=== PATIENT | female | born 1995 | race Hispanic/Latino ===

== ENCOUNTER 2018-03-15 10:47 | Emergency (ER) | payer MEDICARE, OTHER ==
[~2018-03-15] VITALS: Ht 160 cm; Wt 62.1 kg
[2018-03-15] MEDS ORDERED: HYDROCODONE/APAP 7.5MG-325MG 1 EA TAB PO PRN (11:00)
--- NOTE | 2018-03-15 12:11 | Diagnostic Imaging Report ---
RIGHT HAND X-RAY - 3 VIEWS HISTORY: \S\r/o fx \[id number] \[id number] COMPARISON: None available. FINDINGS: Bones: No acute displaced fracture. Osseous alignment is within normal limits. Joints: The joint spaces are well-maintained. Soft tissues: The soft tissues appear unremarkable. IMPRESSION: No acute radiographic abnormality. Signed by: Dr. Haleigh Jefferson M.D. on 03/15/2018 12:08 PM
== END 2018-03-15 12:58 | disposition home or self-care (01) ==
LOC: ER 10:47
DX: S60.221A Contusion of right hand, initial encounter (principal); W22.09XA Striking against other stationary object, initial encounter; X79.XXXA Intentional self-harm by blunt object, initial encounter; Y92.008 Other place in unspecified non-institutional (private) residence as the place of occurrence of the external cause
CPT/HCPCS: 99283

== ENCOUNTER 2020-02-11 08:00 | Emergency (ER) | payer BC, MEDICARE ==
[~2020-02-11] VITALS: Ht 160 cm; Wt 62.1 kg
--- OUTSIDE RECORDS SUMMARY | 2020-02-11 08:03 | XMS REPORT ---
Author Author [facility] t Organization [facility] Address 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 Allergies, Adverse Reactions, Alerts Allergy Name Allergy Type Status Severity Reaction(s) Onset Date Inacti ve Date Treating Clinician Comments Source No Known Allergies DA Active U 2019-03-25 00:00:00 [facility] No Known Allergies DA Active U 2018-11-08 00:00:00 [facility] No Known Allergies DA Active U 2018-08-21 00:00:00 [facility] No Known Drug Allergies DA Active U 2010-10-01 00:00:00 [facility] No Known Contrast Allergies DA Active U 2001-10-28 00:00: 00 [facility] No Known Drug Allergies DA Active U 2001-10-28 00:00:00 [facility] No Known Food Allergies DA Active U 2001-10-28 00:00:00 [facility] No Known Other Allergies DA Active U 2001-10-28 00:00:00 [facility] Social History Social Habit Start Date Stop Date Quantity Comments Source Sex Assigned At [facility] Medications This patient has no known medications. Procedures This patient has no known procedures. Plan of Care Planned Activity Planned Date Details Comments Source Future Scheduled Test 2020-06-15 00:00:00 IMM Influenza Seas onal Jun to November (>/= 19 yrs) [code = IMM Influenza Seasonal Jun to November (>/= 19 yrs)] [facility] Scheduled Test 2017 00:00:00 Cervical Cancer Sc rn (3 Yrs) [code = Cervical Cancer Scrn (3 Yrs)] [facility] Encounters Start Date/Time End Date/Time Encounter Type Admission Type Att[facility] Care Department Encounter ID Source 2018-11-05 11:55:26 2018-11-05 11:55:26 Outpatient [facility] [id number] [facility] 2018-11-05 00:00:00 2018-11-05 00:00:00 Outpatient [facility] [id number] [facility] 2018-03-15 10:47:00 2018-03-15 12:58:00 Departed Emergency Room [address] [facility] [id number] [facility] Results Test Description Test Time Test Comments Results Result Comments Source Manual Diff 2019-04-18 08:56:46 Test Item Segs Man (test code = Segs Man) 80.0 % 36.0-70.0 H Band Man (test code = Band Man) 5.0 % 0.0-6.0 Lymph Man (test code = Lymph Man) 11.0 % 12.0-44.0 L Monocyte Man (test code = Monocyte Man) 4.0 % 0.0-11.0 Neut Man Abs (test code = Neut Man Abs) 21.0 x10 1.6-7.4 H Lymph Man Abs (test code = Lymph Man Abs) 2.7 x10 0.5-4.6 [place] Man Abs (test code = [place] Man Abs) 1.0 x10 0.0-1.2 RBC Morph (test code = RBC Morph) Normal Normal Hypochromia (test code = Hypochromia) None Seen None Seen Anisocyte (test code = Anisocyte) None None Microcyte (test code = Microcyte) None Seen None Seen Macrocyte (test code = Macrocyte) None Seen None Seen Poik (test code = Poik) None Seen None Seen Polychrom (test code = Polychrom) None Seen None Seen Acanthocyte (test code = Acanthocyte) None Seen None Seen Baso Stippling RBC (test code = Baso Stippling RBC) None Seen No ne Seen Plt Estimation (test code = Plt Estimation) Normal Normal IG [id number] 08:56:46* Test Item Value Reference Range Interpretation Comments IG (test code = IG) 1.3 % 0.0-5.0 IG Abs (test code = IG Abs) 0 x10 N Complete Blood Count with [id number] 06:33:27* Test Item Value Reference Range Interpretation Comments WBC (test code = WBC) 24.7 x10 4.4-10.5 H RBC (test code = RBC) 3.28 x10 3.75-5.20 L Hgb (test code = Hgb) 9.6 g/dL 12.2-14.8 L Hct (test code = Hct) 28.6 % 36.5-44.4 L MCV (test code = MCV) 87.20 fL 80.00-100.00 MCHC (test code = MCHC) 33.60 g/dL 32.00-37.50 RDW CV (test code = RDW CV) 13.7 % 11.5-14.5 MCH (test code = MCH) 29.3 pg 27.0-32.5 Platelets (test code = Platelets) 162.0 x10 140.0-440.0 MPV (test code = MPV) 11.9 fL N Slide Review (test code = Slide Review) Manual Auto A Result created by GL_SJM_SLIDE_REV_AUTO GL_SJM_XN_RFLX IPF (test code = IPF) 0 % N Complete Blood Count with [id number] 06:33:27* Test Item Value Reference Range Interpretation Comments WBC (test code = WBC) 24.7 x10 4.4-10.5 H RBC (test code = RBC) 3.28 x10 3.75-5.20 L Hgb (test code = Hgb) 9.6 g/dL 12.2-14.8 L Hct (test code = Hct) 28.6 % 36.5-44.4 L MCV (test code = MCV) 87.20 fL 80.00-100.00 MCHC (test code = MCHC) 33.60 g/dL 32.00-37.50 RDW CV (test code = RDW CV) 13.7 % 11.5-14.5 MCH (test code = MCH) 29.3 pg 27.0-32.5 Platelets (test code = Platelets) 162.0 x10 140.0-440.0 MPV (test code = MPV) 11.9 fL N Slide Review (test code = Slide Review) Manual Auto A Result created by GL_SJM_SLIDE_REV_AUTO GL_SJM_XN_RFLX nRBC (test code = nRBC) 0 N NRBC Abs (test code = NRBC Abs) 0.00 x10 N Pos Diff XN (test code = Pos Diff XN) A N Pos Count XN (test code = Pos Count XN) A N IPF (test code = IPF) 0 % N POC Cord BG [id number] 18:48:38* Test Item Value Reference Range Interpretation Comments pH CordA (test code = pH CordA) 7.31 7.32-7.43 L pH Temp Kalyn CordA (test code = pH Temp Kalyn CordA) 7.31 N pCO2 CordA (test code = pCO2 CordA) 46 mmHg 27-40 H pCO2 Temp Kalyn CordA (test code = pCO2 Temp Kalyn CordA) 46 mmHg N pO2 Temp Kalyn CordA (test code = pO2 Temp Kalyn CordA) 16.2 mmHg N ctHb CordA (test code = ctHb CordA) 15.5 g/dL 15.0-22.0 HCO3 CordA (test code = HCO3 CordA) 23.6 mmol/L N Hct CordA (test code = Hct CordA) 47 % 40-70 FiO2 CordA (test code = FiO2 CordA) 21 % N BE CordA (test code = BE CordA) -3.0 N Draw Site (test code = Draw Site) Umbilical N Manual [id number] 13:51:10* Test Item Value Reference Range Interpretation Comments Segs Man (test code = Segs Man) 77.0 % 36.0-70.0 H Band Man (test code = Band Man) 2.0 % 0.0-6.0 Lymph Man (test code = Lymph Man) 18.0 % 12.0-44.0 Monocyte Man (test code = Monocyte Man) 3.0 % 0.0-11.0 Neut Man Abs (test code = Neut Man Abs) 15.3 x10 1.6-7.4 H Lymph Man Abs (test code = Lymph Man Abs) 3.5 x10 0.5-4.6 [place] Man Abs (test code = [place] Man Abs) 0.6 x10 0.0-1.2 RBC Morph (test code = RBC Morph) Normal Normal Hypochromia (test code = Hypochromia) None Seen None Seen Anisocyte (test code = Anisocyte) None None Microcyte (test code = Microcyte) None Seen None Seen Macrocyte (test code = Macrocyte) None Seen None Seen Poik (test code = Poik) None Seen None Seen Polychrom (test code = Polychrom) None Seen None Seen Acanthocyte (test code = Acanthocyte) None Seen None Seen Baso Stippling RBC (test code = Baso Stippling RBC) None Seen No ne Seen Plt Estimation (test code = Plt Estimation) Normal Normal Platelet Morphology (test code = Platelet Morphology) Large platele ts Normal A Toxic Gran (test code = Toxic Gran) 1+ None Seen A Complete Blood Count with [id number] 12:10:02* Test Item Value Reference Range Interpretation Comments WBC (test code = WBC) 19.4 x10 4.4-10.5 H RBC (test code = RBC) 4.03 x10 3.75-5.20 Hgb (test code = Hgb) 11.7 g/dL 12.2-14.8 L MCV (test code = MCV) 86.80 fL 80.00-100.00 Hct (test code = Hct) 35.0 % 36.5-44.4 L MCHC (test code = MCHC) 33.40 g/dL 32.00-37.50 RDW CV (test code = RDW CV) 13.4 % 11.5-14.5 MCH (test code = MCH) 29.0 pg 27.0-32.5 Platelets (test code = Platelets) 198.0 x10 140.0-440.0 MPV (test code = MPV) 12.1 fL N Slide Review (test code = Slide Review) Manual Auto A Result created by GL_SJM_SLIDE_REV_AUTO GL_SJM_XN_RFLX nRBC (test code = nRBC) 0 N NRBC Abs (test code = NRBC Abs) 0.00 x10 N Pos Diff XN (test code = Pos Diff XN) A N IPF (test code = IPF) 0 % N IG [id number] 12:10:02* Test Item Value Reference Range Interpretation Comments IG (test code = IG) 1.1 % 0.0-5.0 IG Abs (test code = IG Abs) 0 x10 N ABORh [id number] 12:04:29* Test Item Value Reference Range Interpretation Comments Methodology (test code = Methodology) Test-Tube(TT) Anti-A (test code = Anti-A) 4+ Anti-B (test code = Anti-B) 0 Anti-AB (test code = Anti-AB) NT Anti-D (test code = Anti-D) 4+ ABORh Retype (test code = ABORh Retype) A POS Protein [id number] 05:07:47* Test Item Value Reference Range Interpretation Comments U Protein (test code = U Protein) <4.0 mg/dL N Creatinine [id number] 04:39:11* Test Item Value Reference Range Interpretation Comments U Creatinine (test code = U Creatinine) 11.8 mg/dL 10.0-300.0 Uric [id number] 04:23:41* Test Item Value Reference Range Interpretation Comments Uric Acid (test code = Uric Acid) 4.3 mg/dL 3.4-5.7 Comprehensive Metabolic [id number] 04:23:40* Test Item Value Reference Range Interpretation Comments Sodium Level (test code = Sodium Level) 138.0 mmol/L 135.0-145.0 Potassium Level (test code = Potassium Level) 3.5 mmol/L 3.5-5.1 Chloride Level (test code = Chloride Level) 109 mmol/L 98-105 H CO2 (test code = CO2) 19 mmol/L 22-29 L Anion Gap (test code = Anion Gap) 10 mmol/L 7-16 BUN (test code = BUN) 3.60 mg/dL 6.00-20.00 L Creatinine Level (test code = Creatinine Level) 0.40 mg/dL 0.50-0 .90 L BUN/Creat Ratio (test code = BUN/Creat Ratio) 9 N Glucose Level (test code = Glucose Level) 84 mg/dL 70-115 Calcium Level (test code = Calcium Level) 8.7 mg/dL 8.3-10.5 Alk Phos (test code = Alk Phos) 185 U/L 35-104 H Bilirubin Total (test code = Bilirubin Total) 0.3 mg/dL 0.1-0.9 Albumin Level (test code = Albumin Level) 3.4 g/dL 3.5-5.2 L Protein Total (test code = Protein Total) 5.7 g/dL 6.4-8.3 L ALT (test code = ALT) 7 U/L 1-33 AST (test code = AST) 14 U/L 1-32 Globulin (test code = Globulin) 2.3 g/dL 2.9-3.1 L A/G Ratio (test code = A/G Ratio) 1.5 ratio N Comprehensive Metabolic [id number] 04:23:40* Test Item Value Reference Range Interpretation Comments Sodium Level (test code = Sodium Level) 138.0 mmol/L 135.0-145.0 Potassium Level (test code = Potassium Level) 3.5 mmol/L 3.5-5.1 Chloride Level (test code = Chloride Level) 109 mmol/L 98-105 H CO2 (test code = CO2) 19 mmol/L 22-29 L Anion Gap (test code = Anion Gap) 10 mmol/L 7-16 BUN (test code = BUN) 3.60 mg/dL 6.00-20.00 L Creatinine Level (test code = Creatinine Level) 0.40 mg/dL 0.50-0 .90 L BUN/Creat Ratio (test code = BUN/Creat Ratio) 9 N Glucose Level (test code = Glucose Level) 84 mg/dL 70-115 Calcium Level (test code = Calcium Level) 8.7 mg/dL 8.3-10.5 Alk Phos (test code = Alk Phos) 185 U/L 35-104 H Bilirubin Total (test code = Bilirubin Total) 0.3 mg/dL 0.1-0.9 Albumin Level (test code = Albumin Level) 3.4 g/dL 3.5-5.2 L Protein Total (test code = Protein Total) 5.7 g/dL 6.4-8.3 L ALT (test code = ALT) 7 U/L 1-33 AST (test code = AST) 14 U/L 1-32 Globulin (test code = Globulin) 2.3 g/dL 2.9-3.1 L A/G Ratio (test code = A/G Ratio) 1.5 ratio N eGFR AA (test code = eGFR AA) >60 mL/min/1.73 m2 N eGFR (estimated Glomerular Filtration Rate) is an estimated value, calculated from the patient's serum creatinine using the MDRD equation. It is NOT the patient's actual GFR. The eGFR provides a more clinically useful measure of kidney disease than serum creatinine alone.This calculation takes sex and race into account, if the information is provided. If the race is not provided, and the patient is -[place], multiply by 1.212. If sex is not provided, and the patient is female, multiply by 0.742. Results for patients <18 years of age have not been validated by the MDRD study and should be interpreted with caution. eGFR Result Interpretation:eGFR > or = 60 is in the Normal RangeeGFR < 60 may mean kidney diseaseeGFR < 15 may mean kidney failure Ranges recommended by the National Kidney Foundation, http://nkdep.nih.gov eGFR Non-AA (test code = eGFR Non-AA) >60.00 mL/min/1.73 m2 N eGFR (estimated Glomerular Filtration Rate) is an estimated value, calculated from the patient's serum creatinine using the MDRD equation. It is NOT the patient's actual GFR. The eGFR provides a more clinically useful measure of kidney disease than serum creatinine alone.This calculation takes sex and race into account, if the information is provided. If the race is not provided, and the patient is -[place], multiply by 1.212. If sex is not provided, and the patient is female, multiply by 0.742. Results for patients <18 years of age have not been validated by the MDRD study and should be interpreted with caution. eGFR Result Interpretation:eGFR > or = 60 is in the Normal RangeeGFR < 60 may mean kidney diseaseeGFR < 15 may mean kidney failure Ranges recommended by the National Kidney Foundation, http://nkdep.nih.gov Comprehensive Metabolic [id number] 04:23:40* Test Item Value Reference Range Interpretation Comments Sodium Level (test code = Sodium Level) 138.0 mmol/L 135.0-145.0 Potassium Level (test code = Potassium Level) 3.5 mmol/L 3.5-5.1 Chloride Level (test code = Chloride Level) 109 mmol/L 98-105 H CO2 (test code = CO2) 19 mmol/L 22-29 L Anion Gap (test code = Anion Gap) 10 mmol/L 7-16 BUN (test code = BUN) 3.60 mg/dL 6.00-20.00 L Creatinine Level (test code = Creatinine Level) 0.40 mg/dL 0.50-0 .90 L BUN/Creat Ratio (test code = BUN/Creat Ratio) 9 N Glucose Level (test code = Glucose Level) 84 mg/dL 70-115 Calcium Level (test code = Calcium Level) 8.7 mg/dL 8.3-10.5 Alk Phos (test code = Alk Phos) 185 U/L 35-104 H Bilirubin Total (test code = Bilirubin Total) 0.3 mg/dL 0.1-0.9 Albumin Level (test code = Albumin Level) 3.4 g/dL 3.5-5.2 L Protein Total (test code = Protein Total) 5.7 g/dL 6.4-8.3 L ALT (test code = ALT) 7 U/L 1-33 AST (test code = AST) 14 U/L 1-32 Globulin (test code = Globulin) 2.3 g/dL 2.9-3.1 L A/G Ratio (test code = A/G Ratio) 1.5 ratio N eGFR AA (test code = eGFR AA) >60 mL/min/1.73 m2 N eGFR (estimated Glomerular Filtration Rate) is an estimated value, calculated from the patient's serum creatinine using the MDRD equation. It is NOT the patient's actual GFR. The eGFR provides a more clinically useful measure of kidney disease than serum creatinine alone.This calculation takes sex and race into account, if the information is provided. If the race is not provided, and the patient is -[place], multiply by 1.212. If sex is not provided, and the patient is female, multiply by 0.742. Results for patients <18 years of age have not been validated by the MDRD study and should be interpreted with caution. eGFR Result Interpretation:eGFR > or = 60 is in the Normal RangeeGFR < 60 may mean kidney diseaseeGFR < 15 may mean kidney failure Ranges recommended by the National Kidney Foundation, http://nkdep.nih.gov eGFR Non-AA (test code = eGFR Non-AA) >60.00 mL/min/1.73 m2 N eGFR (estimated Glomerular Filtration Rate) is an estimated value, calculated from the patient's serum creatinine using the MDRD equation. It is NOT the patient's actual GFR. The eGFR provides a more clinically useful measure of kidney disease than serum creatinine alone.This calculation takes sex and race into account, if the information is provided. If the race is not provided, and the patient is -[place], multiply by 1.212. If sex is not provided, and the patient is female, multiply by 0.742. Results for patients <18 years of age have not been validated by the MDRD study and should be interpreted with caution. eGFR Result Interpretation:eGFR > or = 60 is in the Normal RangeeGFR < 60 may mean kidney diseaseeGFR < 15 may mean kidney failure Ranges recommended by the National Kidney Foundation, http://nkdep.nih.gov Lactate [id number] 04:23:40* Test Item Value Reference Range Interpretation Comments LDH (test code = LDH) 204 U/L 135-214 Hepatitis B Surface [id number] 22:37:12* Test Item Value Reference Range Interpretation Comments Hep Bs Ag (test code = Hep Bs Ag) Nonreactive Non Reactive RPR [id number] 16:47:52* Test Item Value Reference Range Interpretation Comments RPR Qual (test code = RPR Qual) Non-Reactive Non-Reactive Reactive Control (test code = Reactive Control) Reactive Weak Reactive Control (test code = Weak Reactive Control) Weak Reac tive Non-Reactive Control (test code = Non-Reactive Control) Non-Reactiv e Lot # (test code = Lot #) [id number] N Expiration Dt (test code = Expiration Dt) 07-15-2020 N ABORh [id number] 13:47:35* Test Item Value Reference Range Interpretation Comments Methodology (test code = Methodology) Test-Tube(TT) Anti-A (test code = Anti-A) 4+ Anti-B (test code = Anti-B) 0 Anti-AB (test code = Anti-AB) NT Anti-D (test code = Anti-D) 4+ ABORh Retype (test code = ABORh Retype) A POS 3C ABSC [id number] 10:42:53* Test Item Value Reference Range Interpretation Comments SC1 IS (test code = SC1 IS) NT SC2 IS (test code = SC2 IS) NT SC3 IS (test code = SC3 IS) NT SC1 37 (test code = SC1 37) 0 SC2 37 (test code = SC2 37) 0 SC3 37 (test code = SC3 37) 0 SC1 AHG (test code = SC1 AHG) 0 SC2 AHG (test code = SC2 AHG) 0 SC3 AHG (test code = SC3 AHG) 0 SC1 CC (test code = SC1 CC) 2+ SC2 CC (test code = SC2 CC) 2+ SC3 CC (test code = SC3 CC) 2+ Antibody Screen (3C) (test code = Antibody Screen (3C)) Negative AB SC Complete Blood Count with [id number] 10:32:45* Test Item Value Reference Range Interpretation Comments WBC (test code = WBC) 11.1 x10 4.4-10.5 H RBC (test code = RBC) 3.80 x10 3.75-5.20 Hgb (test code = Hgb) 10.9 g/dL 12.2-14.8 L MCV (test code = MCV) 86.60 fL 80.00-100.00 Hct (test code = Hct) 32.9 % 36.5-44.4 L MCHC (test code = MCHC) 33.10 g/dL 32.00-37.50 RDW CV (test code = RDW CV) 13.6 % 11.5-14.5 MCH (test code = MCH) 28.7 pg 27.0-32.5 Platelets (test code = Platelets) 205.0 x10 140.0-440.0 MPV (test code = MPV) 13.0 fL N Slide Review (test code = Slide Review) Auto Auto Result created by GL_SJM_SLIDE_REV_AUTO nRBC (test code = nRBC) 0 N NRBC Abs (test code = NRBC Abs) 0.00 x10 N IPF (test code = IPF) 0 % N Automated [id number] 10:32:45* Test Item Value Reference Range Interpretation Comments Neutro Auto (test code = Neutro Auto) 68.2 % 36.0-70.0 Lymph Auto (test code = Lymph Auto) 21.4 % 12.0-44.0 [place] Auto (test code = [place] Auto) 7.9 % 0.0-11.0 Eos, Auto (test code = Eos, Auto) 0.8 % 0.0-7.0 Basophil Auto (test code = Basophil Auto) 0.4 % 0.0-2.0 Neutro Absolute (test code = Neutro Absolute) 7.6 x10 1.6-7.4 H Lymph Absolute (test code = Lymph Absolute) 2.38 x10 .50-4.60 [place] Absolute (test code = [place] Absolute) .88 x10 .00-1.20 Eos Absolute (test code = Eos Absolute) 0.09 x10 0.00-0.74 Baso Absolute (test code = Baso Absolute) 0.05 x10 0.00-0.21 IG [id number] 10:32:45* Test Item Value Reference Range Interpretation Comments IG (test code = IG) 1.3 % 0.0-5.0 IG Abs (test code = IG Abs) 0 x10 N [id number] 10:17:14* Test Item Value Reference Range Interpretation Comments Previous History (test code = Previous History) No Prev History BBID (test code = BBID) [id number] Methodology (test code = Methodology) Test-Tube(TT) Anti-A (test code = Anti-A) 4+ Anti-B (test code = Anti-B) 0 Anti-D (test code = Anti-D) 4+ DCon (test code = DCon) NT A1 (test code = A1) 0 B cells (test code = B cells) 4+ ABORh (test code = ABORh) A POS Urine [id number] 08:38:45 C Urine Added by GL_SJM_UA_CUL_INDNo growth at 24 hours. No growth at 48 hours.Urinalysis [id number] 13:58:24* Test Item Value Reference Range Interpretation Comments UA WBC (test code = UA WBC) 11-19 0-5 A UA RBC (test code = UA RBC) None Seen 0-5 UA Bacteria (test code = UA Bacteria) Few A UA Squam Epithelial (test code = UA Squam Epithelial) 20-29 A UA Trans Epithelial (test code = UA Trans Epithelial) 1-4 A Urinalysis with Culture, if [id number] 13:46:10* Test Item Value Reference Range Interpretation Comments UA Color (test code = UA Color) YELLO Yellow UA Appear (test code = UA Appear) CLEAR Clear UA pH (test code = UA pH) 7 N UA Spec Grav (test code = UA Spec Grav) 1.011 1.001-1.035 UA Glucose (test code = UA Glucose) NEG Negative UA Bili (test code = UA Bili) NEG Negative UA Ketones (test code = UA Ketones) 15 mg/dL Negative A UA Blood (test code = UA Blood) NEG Negative UA Protein (test code = UA Protein) NEG Negative UA Urobilinogen (test code = UA Urobilinogen) 0.2 mg/dL N UA Nitrite (test code = UA Nitrite) NEG Negative UA Leuk Est (test code = UA Leuk Est) 500 cells/mcL Negative A UA Micro Ind? (test code = UA Micro Ind?) Indicated Not Indicate d A Result created by rule GL_SJM_UA_MICRO_IND Rupture of [id number] 15:10:54* Test Item Value Reference Range Interpretation Comments Membrane Rupture (test code = Membrane Rupture) Negativ e Negative PER DR DAVIS AT 1510PMThe ROM (Rupture of Membranes) Plus test is for the in vitro detection of PP12 (alson known as IGFBP-1) and Alpha-Fetoprotein (AFP) markers of amniotic fluid in vaginal discharge of women.Limitations of Test:Sample must be tested within 6 hours of collection. A significant amount of blood in sample will cause erroneous results. Elevated serum, urine, ord blood, and amniotic fluid, as well as maternal serum levels of AFP, have been reported in the literature in various developmental disorders such as neural tube defects, hypothyroidism, autoimmune states, congenital heart defects, cyctic fibrosis, etc. ROM Plus has not been evaluated for potential interference in these conditions. The ROM Plus test may report positive results in patients with intact membranes and therefore decisions to induce labor should not be based solely on ROM Plus results. Lot # (test code = Lot #) [id number] N Expiration Dt (test code = Expiration Dt) 2021-02-12 N Neg Control (test code = Neg Control) Negative Pos Control (test code = Pos Control) Positive Internal QC (test code = Internal QC) Acceptable Wet [id number] 14:41:14Many White Blood Cells Few Bacteria Few epithelial cells No Clue Cells Seen No Trichomonas Seen No Yeast- US FET BIO PH [place] W/O NST 2019-03-13 02:29:00 Patient Name: SATINDER ALVARADO Unit No: [id number] EXAMS: CPT CODE: [id number] US FET BIO [place] W/[place] NST 929[address] biophysical profile dated 03/13/2019. HISTORY: 34.6 week intrauterine . Cramping. A limited transabdominal obstetrical ultrasound was performed for the purpose of biophysical profile determination. The ultrasound reveals the presence of a single intrauterine in cephalic position. cardiac activity is documented with a heart rate of 136 bpm. The placenta is posteriorly positioned and demonstrates grade 2 echotexture. There is no evidence of placenta previa or placental hemorrhage. Amniotic fluid volume is elevated with a measured AUSTYN of 20.8. The cervix is closed with a measured cervical length of 4.3 cm. measurements are not obtained. A anatomic survey was not performed. The fetus meets the biophysical profile criteria for breathing movement, gross body movement, tone and amniotic fluid volume giving an overall biophysical profile score of 8/8. IMPRESSION: 1. biophysical profile score of 8/8. 2. Elevated amniotic fluid volume with a measured AUSTYN of 20.8. SL: 131 at 0229 Reported and signed by: Ming Anthony MD CC: Esha Henson MD Technologist: Lizzeth Carreon RDMS Probe: Trnscrbd D/ (0229) SelenaR.[email or web address] Orig Print D/T: S: 03/13/2019 (023) [facility] NAME: CLAUDINE ALVARADONICK BHATIA Radiology Department PHYS: Esha Lu MD [address] : 1995 AGE: 23 SEX: F [place] [id number] LOC: Velma[facility] PHONE #: [phone] EXAM DATE: 03/13/2019 STATUS: REG ER FAX #: [phone] RAD NO: Page 1 Signed Report Patient Name: SATINDER GUDINO Unit No: [id number] EXAMS: CPT CODE: [id number] FET BIO PH [place] W/O NST [address] <Continued> [facility] NAME: SATINDER ALVARADO JANNETTE Radiology Department PHYS: Esha Lu MD [address] : 1995 AGE: 23 SEX: F [place] [id number] LOC: [facility] PHONE #: [phone] EXAM DATE: 03/13/2019 STATUS: REG ER FAX #: [phone] RAD NO: Page 2 Signed Report - US [id number] 00:38:00 Patient Name: SATINDER ALVARADO Unit No: [id number] EXAMS: CPT CODE: [id number] US PRE GNANCY LTD [address] Limited obstetrical ult rasound dated 03/13/2019. HISTORY: 34.6 week . Cramping. A limi sydnie transabdominal obstetrical ultrasound was performed and reveals the presenc e of a single intrauterine in cephalic position. cardiac activ ity is documented with a heart rate of 153 bpm. The placenta is posteriorly po sitioned and demonstrates grade 2 echotexture. There is no evidence of placent a previa or retroplacental hemorrhage. Amniotic fluid volume is increased with a measured AUSTYN of 21.7. The cervix is closed with a measured cervical length of 2.9 cm. measurements were not obtained. A anatomic survey w as not performed. The right ovary measures 3.7 x 1.2 x 1.7 cm and the left ovary measures 2.1 x 1.3 x 1.2 cm. The ovaries maintain normal echotexture. Ovarian blood flow is documented bilaterally using Doppler ultrasound. No adne xal masses or pelvic fluid collections are imaged. IMPRESSION: 1. Sing le living intrauterine in cephalic position. 2. Elevated amniotic fluid index of 21.7. SL: 131 at 0038 Reported and signed by: Ming Anthony MD CC: Esha Henson MD Technologist: Lizzeth Carreon RDMS Probe: Trnscrbd D/ (0038) t.SDR.DMM Orig Print D/T: S: 03/13/2019 (0042) [facility] NAME: SATINDER ALVARADO Radiology Department PHYS: Esha Lu MD [address] : 1995 AGE: 23 SEX: F [place] [address] ACCT NO: [id number] LOC: F.AI PHONE #: [phone] EXAM DATE: 02/14 STATUS: REG ER FAX #: [phone] RAD NO: P age 2 Signed Report Patient N michael: SATINDER ALVARADO Unit No: [id number] EXAMS: CPT CODE: [id number] [id number] <Continued> [facility] NAME: SATINDER ALVARADO Radiology Department PHYS: Esha Lu MD [address] : 1995 AGE: 23 SEX: F [place] [address] LOC: F.AI PHONE #: [phone] EXAM DATE: 03/13/2019 STATUS: REG ER FAX #: [phone] RAD NO: Page 2 Signed Report URINALYSIS [id number] 22:04:00 * Test Item Value Reference Range Interpretation Comments UA COLOR (test code = COLU) YELLOW YELLOW UA APPEARANCE (test code = APPU) Slightly-Cloudy CLEAR UA GLUCOSE DIPSTICK (test code = DGLUU) NEGATIVE NEG UA BILIRUBIN DIPSTICK (test code = BILU) NEGATIVE NEG UA KETONE DIPSTICK (test code = KETU) NEGATIVE NEG UA SPECIFIC GRAVITY (test code = SGU) 1.012 1.001-1.035 N UA BLOOD DIPSTICK (test code = DELORES) NEG NEG UA PH DIPSTICK (test code = NICOLE) 6.0 5-9 UA PROTEIN DIPSTICK (test code = PROU) NEGATIVE NEG UA UROBILINIOGEN DIPSTICK (test code = URO) NEGATIVE mg/dL NEG UA NITRITE DIPSTICK (test code = MIMI) NEG NEG UA LEUKOCYTE ESTERASE DIPSTICK (test code = LEUU) 2+ NEG A UA WBC (test code = WBCU) 6-10 #/hpf NONE SEEN A UA RBC (test code = RBCU) 0-2 #/hpf NONE SEEN UA EPITHELIAL CELLS (test code = EPIU) RARE #/HPF RARE-FEW UA BACTERIA (test code = BACU) RARE /HPF RARE-FEW UA MUCUS (test code = MUCU) RARE NONE SEEN Specimen Comment: RODRÍGUEZ GOODWIN SAMPLE: CLEAN CATCHDRUGS OF ABUSE [id number] 21:52:00* Test Item Value Reference Range Interpretation Comments UR COCAINE (test code = COCAU) NEGATIVE NEGATIVE DETECTION CUT OFF: 150 ng/mL UR CANNABINOIDS (test code = CANU) NEGATIVE NEGATIVE DETECTION CUT OFF: 50 ng/mL UR AMPHETAMINE (test code = AMPHU) NEGATIVE NEGATIVE DETECTION CUT OFF: 500 ng/mL UR BARBITURATE QUAL (test code = BARBQLU) NEGATIVE NEGATIVE DETECTION CUT OFF: 200 ng/mL UR BENZODIAZEPINE (test code = BENZU) NEGATIVE NEGATIVE DETECTION CUT OFF: 150 ng/mL UR OPIATES QUAL (test code = OPIAQLU) NEGATIVE NEGATIVE DETECTION CUT OFF: 100 ng/mL UR PHENCYCLIDINE (PCP) (test code = PHENCU) NEGATIVE NEGATIVE DETECTION CUT OFF: 25 ng/mL URINALYSIS [id number] 13:51:00* Test Item Value Reference Range Interpretation Comments UA COLOR (test code = COLU) YELLOW YELLOW UA APPEARANCE (test code = APPU) SLIGHTLY CLOUDY CLEAR A UA GLUCOSE DIPSTICK (test code = DGLUU) NEGATIVE mg/dL NEGATIVE UA BILIRUBIN DIPSTICK (test code = BILU) NEGATIVE mg/dL NEGATIVE UA KETONE DIPSTICK (test code = KETU) 20 (Small) mg/dL NEGATIVE A UA SPECIFIC GRAVITY (test code = SGU) 1.016 1.001-1.035 UA BLOOD DIPSTICK (test code = DELORES) Negative NEGATIVE UA PH DIPSTICK (test code = NICOLE) 6.0 5.0-8.0 UA PROTEIN DIPSTICK (test code = PROU) Negative mg/dL NEGATIVE UA UROBILINIOGEN DIPSTICK (test code = URO) NEGATIVE mg/dL NEGATIVE UA NITRITE DIPSTICK (test code = MIMI) NEGATIVE NEGATIVE UA LEUKOCYTE ESTERASE W REFLEX (test code = LEUUR) 1+ NEG ATIVE A UA WBC (test code = WBCU) 6-10 #/HPF 0-5 A UA RBC (test code = RBCU) 0-2 #/HPF 0-5 UA EPITHELIAL CELLS (test code = EPIU) MOD per HPF FEW UA MUCUS (test code = MUCU) FEW #/LPF FEW Urine Source? Clean CatchURINALYSIS [id number] 13:48:00* Test Item Value Reference Range Interpretation Comments UA COLOR (test code = COLU) YELLOW YELLOW UA APPEARANCE (test code = APPU) SLIGHTLY CLOUDY CLEAR A UA GLUCOSE DIPSTICK (test code = DGLUU) NEGATIVE mg/dL NEGATIVE UA BILIRUBIN DIPSTICK (test code = BILU) NEGATIVE mg/dL NEGATIVE UA KETONE DIPSTICK (test code = KETU) 20 (Small) mg/dL NEGATIVE A UA SPECIFIC GRAVITY (test code = SGU) 1.016 1.001-1.035 UA BLOOD DIPSTICK (test code = DELORES) Negative NEGATIVE UA PH DIPSTICK (test code = NICOLE) 6.0 5.0-8.0 UA PROTEIN DIPSTICK (test code = PROU) Negative mg/dL NEGATIVE UA UROBILINIOGEN DIPSTICK (test code = URO) NEGATIVE mg/dL NEGATIVE UA NITRITE DIPSTICK (test code = MIMI) NEGATIVE NEGATIVE UA LEUKOCYTE ESTERASE W REFLEX (test code = LEUUR) 1+ NEG ATIVE A UA WBC (test code = WBCU) per HPF 0-5 Urine Source? Clean CatchUR HCG [id number] 13:47:00* Test Item Value Reference Range Interpretation Comments UR HCG QUAL (test code = HCGQLU) POSITIVE This HCGQL test is NOT applicable for MALE patients.Check with nurse about probable order error.If Tumor Marker Test needed, nurse should order test "HCGTU"(Test #[id number]) HAND 3+ VIEWS [id number] 12:07:00 [place] [address] Patient Name: SATINDER ALVARADO MR #: [id number] : 1995 Age/Sex: 22/F Req #: [id number] Adm Physician: Ordered by: REHAN JAMES NP Report #: [id number] Location: ER Room/Bed: Procedure: [id number] DX/HAND 3+ VIEWS RIGHT Exam Date: 03/15/18 Exam Time: 1127 REPORT STATUS: Signed RIGHT HAND X-RAY - 3 VIEWS HISTORY: COMPARI SON: None available. FINDINGS: Bones: No acute displaced fracture. Osseous alignment is within normal limits. Joints: The joint spaces are well-maintained. Soft tissues: The soft tissues appear unremarkable. IMPRESSION: No acute radiographic abnormality. Signed by: Peter MelendezD. on 03/15/2018 12:08 PM Dictated By: SHIV EID MD [id number] COPY TO: REHAN JAMES NP
--- OUTSIDE RECORDS SUMMARY | 2020-02-11 08:03 | XMS REPORT | Clinical Summary ---
Author Author [facility] Organization [facility] Address Unknown Phone Unavailable Care Team Providers Care Mill Operator Name Role Phone PCP Unavailable Allergies Not on File Medications No known medications Active Problems No known active problems Social History Date Tobacco Use Types Packs/Day Years Used Never Assessed Sex Assigned at Date Recorded Not on file Industry Job Start Date Occupation Not on file Not on file Not on file Travel End Travel History Travel Start No recent travel history available. Last Filed Vital Signs Not on file Plan of Treatment Health Maintenance Due Date Last Done Comments Cervical Cancer Scrn (3 2017 Yrs) IMM Influenza Seasonal 06/15/2020 Oct to November (>/= 19 yrs) Results Not on fileafter 02/10/2019 Insurance Type Payer Benefit Subscriber ID Effective Phone Address Plan / Dates Group [employer] HMO [employer] xxxxxxxxx 2018-P [address] [address] [place] [address]
--- OUTSIDE RECORDS SUMMARY | 2020-02-11 08:03 | XMS REPORT ---
Author Author Admin, Blaise Espinoza Organization Unknown Address Unknown Phone Unavailable PROBLEMS Condition Status Date Provider Notes Contraceptive management active Jazmin [place] examination, normal active Jazmin Whit tier BMI 30 - 30.9, adult active Jazmin Andres 29 Weeks Gestation of completed - 05/24/09 Jazmin [place] 29 Weeks Gestation of completed - 05/23/16 Jazmin Andres 29 Weeks Gestation of completed - 05/23/09 Jazmin [place] 28 Weeks Gestation of completed - 05/23/14 Jazmin Andres 38 weeks gestation of active Jazmin Whi ttier Encounter for supervision of other normal , second trimester active Jazmin [place] 25 weeks gestation of active Jazmin i ttier Supervision of normal first , third trimester active Jazmin Andres Gestation period greater than or equal to 37 weeks active Jazmin Andres Supervision, other normal active Jazmin [place] 36 weeks gestation of active Jazmin Whi ttier BMI 34 - 34.9, adult active Jazmin [place] 33 weeks gestation of active Jazmin Whi ttier Supervision of other normal active Roberto th [place] 32 Weeks Gestation of completed - 05/21/18 Jazmin Andres 31 Weeks Gestation of completed - 05/21/13 Jazmin Andres Supervision of normal first , third trimester active Jazmin [place] Headache active Jazmin Andres BMI 32 - 32.9, adult active Jazmin Andres BMI 33 - 33.9, adult active Jazmin [place] 29 weeks gestation of completed - 201 05/23/07 Jazmin [place] 25 weeks gestation of active Jazmin Whi ttier Obesity (BMI = 30-39.9) active Jazmin Andres 21 weeks gestation of active Jazmin Whi ttier Supervision of other normal , second trimester active Jazmin Campos 17 weeks gestation of active Jazmin Whi ttier Vaginal discharge completed - Jazmin Fitzgerald er Pelvic pain, acute completed - Jazmin Severino ier [facility], normal first active Jazmin Campos ENCOUNTERS Date Type Provider Location Encounter Diagn osis - Ambulatory Encounter Meche Luong [facility] UNK - Ambulatory Encounter Jazmin Campos [facility] UNK - Ambulatory Encounter Jazmin Silva ith Andres [facility] UNK - Ambulatory Encounter Jazmin Silva ith [place] [facility] UNK - Ambulatory Encounter Jazmin Campos [facility] Contraceptive management - Ambulatory Encounter Jazmin Campos [facility] Pelvic pain, acuteVaginal di schargeBMI 30 - 30.9, adultPostpartum examination, normal - Ambulatory Encounter Jazmin Silva ith Andres [facility] 29 Weeks Gestation of - Ambulatory Encounter [facility]azmin Campos [facility] UN[facility] - Ambulatory Encounter Jazmin Campos [facility] UNK - Ambulatory Encounter Jazmin Silva ith [place] [facility] 29 Weeks Gestation of [id number] Weeks Gestation of - Ambulatory Encounter Jazmin Silva ith Andres [facility] 29 weeks gestation of [id number] Weeks Gestation of [id number] Weeks Gestation of - Ambulatory Encounter Courtney Lee [facility] UNK - Ambulatory Encounter Ibeth [facility] UNK - Ambulatory Encounter Ibeth [facility] UNK - Ambulatory Encounter Jazmin Silva ith And[facility] UNK - Ambulatory Encounter Jazmin Montesadalupe White [facility] 38 weeks gestation of pregna ncy - Ambulatory Encounter Jazmin bass [place] [facility] 25 weeks gestation of pregnancyEncounter for supervision of other normal , second trimester - Ambulatory Encounter Jazmin bass [place] [facility] UNK - Ambulatory Encounter Jazmin Wu Andres Kaba White [facility] Gestation period greater shaq n or equal to 37 weeksSupervision of normal first , third trimester - Ambulatory Encounter Meche Luna [facility] UNK - Ambulatory Encounter [facility]era [facility] - Ambulatory Encounter Anai Salinas [facility] UNK - Ambulatory Encounter Meche Luna [facility] UNK - Ambulatory Encounter Courtney Eduardo [facility] UNK - Ambulatory Encounter Jazmin [place] Fa ith [place] [facility] UNK - Ambulatory Encounter Jazmin Silva ith Andres [facility] UNK - Ambulatory Encounter Anai Sinha L [facility] UNK - Ambulatory Encounter Jazmin Campos Sendy White [facility] BMI 34 - 34.9, adult36 weeks gestation of pregnancySupervision, other normal - Ambulatory Encounter Jazmin Silva ith Andres [facility] UNK - Ambulatory Encounter Jazmin Sinha [facility] Supervision of other normal [id number] weeks gestation of - Ambulatory Encounter Jazmin Campos [facility] UNK - Ambulatory Encounter Jazmin Campos [facility] UNK - Ambulatory Encounter Jazmin Silva ith Andres [facility] UNK - Ambulatory Encounter Anai Sinha [facility] [employer] [facility] UNK - Ambulatory Encounter Anai Sinha L [facility] [employer] UNK - Ambulatory Encounter Jazmin Montesadalupe White [facility] [employer] 32 Weeks Gestation of - Ambulatory Encounter Jazmin Campos [facility] UNK - Ambulatory Encounter Jazmin Silva ith [place] [facility] UNK - Ambulatory Encounter Jazmin Silva ith Andres [facility] UNK - Ambulatory Encounter Jazmin Silva ith Andres [facility] UNK - Ambulatory Encounter Jazmin Campos Anai Kaba White [facility] [employer] [facility] [facility] BMI 32 - 32.9, adultHeadacheSupervision of normal first , third [id number] Weeks Gestation of - Ambulatory Encounter Jazmin Silva ith [place] [facility] UNK - Ambulatory Encounter Jazmin Campos Anai Sinha [facility] [employer] [facility] [facility] 29 weeks gestation of pregna ncyBMI 33 - 33.9, adult - Ambulatory Encounter Jazmin Campos [facility] UNK - Ambulatory Encounter Jazmin Silva ith [place] [facility] UNK - Ambulatory Encounter Jazmin Campos Sendy White [facility] [employer] Obesity (BMI = 30-39.9)25 we eks gestation of - Ambulatory Encounter Ly Deo [facility] UNK - Ambulatory Encounter Betsy Murdock [facility] UNK - Ambulatory Encounter Jazmin Campos [facility] [employer] [facility] UNK - Ambulatory Encounter Jazmin Campos [facility] UNK - Ambulatory Encounter Jazmin Silva ith Andres [facility] [employer] [facility] UNK - Ambulatory Encounter Jazmin Campos Amgalykeya Menendez Ly Desouza [facility] 21 weeks gestation of - Ambulatory Encounter Jazmin Silva ith Andres [facility] [employer] UNK - Ambulatory Encounter Jazmin Silva ith [place] [facility] UNK - Ambulatory Encounter Anai Sinha L egjo [facility] [employer] [facility] UNK - Ambulatory Encounter Anai Branhamezma L [facility] [employer] [facility] [facility] UNK - Ambulatory Encounter Anai Mcelroyma L [facility] [employer] [facility] UNK - Ambulatory Encounter Jazmin Campos [facility] 17 weeks gestation of pregnancySupervision of other normal , second trimester - Ambulatory Encounter Jazmin Campos [facility] UNK - Ambulatory Encounter Jazmin Campos [facility] UNK - Ambulatory Encounter Jazmin Campos [facility] UNK - Ambulatory Encounter Magaly Mahajanvino [facility] UNK - Ambulatory Encounter Jazmin Silva ith [facility] UNK - Ambulatory Encounter Jazmin Silva ith [facility] UNK - Ambulatory Encounter Jazmin Silva ith [place] [facility] UNK - Ambulatory Encounter Jazmin Silva ith [facility] UNK - Ambulatory Encounter Jazmin Campos Anai [facility] ST[facility] DRI[facility] T[facility] Supervision, normal first pr [id number] weeks gestation of pregnancyPelvic pain, acuteVaginal discharge - Ambulatory Encounter Health Advoca te Student Property Disposal Officer José Patrick [facility] UNK VITAL SIGNS No Information Available Allergies No Known Allergy Information REASON FOR REFERRAL No Information Available RESULTS Date Observation Value Provider Reference Range Interpretati on Location beta HCG, urine, semiquantitative negative Sendy Harrison nitrite, urine, semiquantitative Neg Sendy White " ketones, urine, by test strip Neg Sendy White " protein, urine, semiquantitative (dipstick) Neg Guadal upe White nitrite, urine, semiquantitative Neg Sendy White " ketones, urine, by test strip Neg Sendy White " protein, urine, semiquantitative (dipstick) Neg Guadal upe White group B streptococcus culture Negative [facility] Negative nitrite, urine, semiquantitative Neg Sendy White " ketones, urine, by test strip Neg Sendy White " protein, urine, semiquantitative (dipstick) Neg Guadal upe White nitrite, urine, semiquantitative Neg Anai Sinha " ketones, urine, by test strip Neg Anai Sinha " protein, urine, semiquantitative (dipstick) Neg Anai Sinha HIV-CMIA (Chemiluminescent Microparticle Immuno Assay) Non Reactive [facility] Non Reactive nitrite, urine, semiquantitative Neg Sendy White " ketones, urine, by test strip Neg Sendy White " protein, urine, semiquantitative (dipstick) Neg Guadal upe White lactate dehydrogenase, serum 233 [iU]/L [facility] 119-226 High " uric acid, serum 3.6 mg/dL [facility] 2.5-7.1 " HIV-CMIA (Chemiluminescent Microparticle Immuno Assay) Non Reactive [facility] Non Reactive " protein, total urine random 7.4 mg/dL [facility] Not Estab. " creatinine, random, urine 53.8 mg/dL [facility] Not Estab. " alanine aminotransferase (SGPT), serum 11 1/L [facility] 0-32 " aspartate aminotransferase (SGOT), serum 15 1/L [facility] 0-40 " alkaline phosphatase, serum 105 1/L [facility] 39-117 " bilirubin, serum, total <0.2 mg/dL [facility] 0.0-1.2 " albumin/globulin ratio, serum 1.5 [facility] 1.2-2.2 " globulin, serum 2.8 [facility] 1.5-4.5 " albumin, serum 4.1 g/dL [facility] 3.5-5.5 " protein, total, serum 6.9 g/dL [facility] 6.0-8.5 " calcium, serum 9.0 mg/dL [facility] 8.7-10.2 " carbon dioxide, venous blood 21 mmol/L [facility] 20-29 " chloride, serum 103 mmol/L [facility] 96-106 " potassium, serum 4.2 mmol/L [facility] 3.5-5.2 " sodium, serum 137 mmol/L [facility] 134-144 " urea nitrogen/creatinine ratio, serum 12 [facility] 9 -23 " eGFR if 168 mL/min/((173/100).m2) [facility] >59 " Estimated Glomerular Filtration Rate (calc) 146 mL/min/((173/100).m2) [facility] >59 " creatinine, serum 0.42 mg/dL [facility] 0.57-1.00 Low " urea nitrogen, blood 5 mg/dL [facility] 6-20 Low " blood glucose, random 56 mg/dL [facility] 65-99 Low " immature granulocytes, percentage of total cells, bloo d 1 % [facility] Not Estab. " basophil count, absolute 0.0 x10E3/uL [facility] 0.0-0.2 " Eosinophil Absolute Count 0.1 X10E3/UL [facility] 0.0-0.4 " monocyte count, blood, automated 1.3 X10E3/UL [facility] 0.1 -0.9 High " lymphocyte count, blood, automated 2.2 X10E3/UL [facility] 0 .7-3.1 " Absolute Neutrophils 11.6 X10E3/UL [facility] 1.4-7.0 High " basophils as percent of blood leukocytes 0 % [facility] Not Estab. " eosinophils as percent of blood leukocytes 0 % [facility] Not Estab. " monocytes as percent of blood leukocytes 9 % [facility] Not Estab. " lymphocytes as percent of blood leukocytes 15 % [facility] Not Estab. " neutrophils as percent of blood leukocytes 75 % [facility] Not Estab. " platelet count 226 X10E3/UL [facility] 150-450 " red blood cell distribution width 13.9 % [facility] 12.3- 15.4 " mean corpuscular hemoglobin concentration, RBC 34.2 G/DL [facility] 31.5-35.7 " mean corpuscular hemoglobin, RBC 31.2 pg [facility] 26.6-3 3.0 " mean corpuscular volume, RBC 91 fL [facility] 79-97 " hematocrit, blood 35.1 % [facility] 34.0-46.6 " hemoglobin, blood 12.0 g/dL [facility] 11.1-15.9 " erythrocyte (RBC) count 3.85 X10E6/UL [facility] 3.77-5.28 " leukocyte count, blood 15.4 X10E3/UL [facility] 3.4-10.8 Hi gh nitrite, urine, semiquantitative Neg Anai Sinha " ketones, urine, by test strip Neg Anai Sinha " protein, urine, semiquantitative (dipstick) Neg Anai Sinha nitrite, urine, semiquantitative Neg Anai Sinha " ketones, urine, by test strip Neg Anai Sinha " protein, urine, semiquantitative (dipstick) Neg Anai Sinha blood glucose, 1 hour after 50 gm oral glucose 95 mg/d L [facility] 65-139 " rubella antibody, serum, IgG 1.23 [facility] Immune >0. 99 " cystic fibrosis, screen Comment: [facility] " Hemoglobin Variant 0.0 % [facility] 0.0 " hemoglobin A2 2.3 % [facility] 1.8-3.2 " hemoglobin C 0.0 % [facility] 0.0 " hemoglobin S 0.0 % [facility] 0.0 " hemoglobin A 97.7 % [facility] 96.4-98.8 " hemoglobin F 0.0 % [facility] 0.0-2.0 " hemoglobin solubility test Negative [facility] Negative " alcohol, urine Negative % [facility] Cutoff=0.020 " phencyclidine screen, urine Negative [facility] Cutoff=25 " opiates, urine, semiquantitative Negative [facility] Cutoff =300 " cocaine, urine Negative [facility] Rpofbt=248 " cannabinoid screen, urine Negative [facility] Cutoff=50 " benzodiazepine screen, urine Negative [facility] Hwjtbe=638 " barbiturates screen, urine Negative [facility] Lxzavp=159 " amphetamine screen, urine Negative [facility] [id number] nitrite, urine, semiquantitative Neg Sendy White " ketones, urine, by test strip Neg Sendy White " protein, urine, semiquantitative (dipstick) Neg Guadal upe White test, type home Magaly Menendez " nitrite, urine, semiquantitative Neg Magaly Menendez " ketones, urine, by test strip Neg Magaly Menendez " protein, urine, semiquantitative (dipstick) Neg Magaly Menendez nitrite, urine, semiquantitative Neg Anai Sinha " ketones, urine, by test strip Neg Anai Sinha " protein, urine, semiquantitative (dipstick) Neg Anai Sinha Human Papillomavirus test result HPVNotTested [facility] trichomonas vaginalis, urine Negative [facility] Negative " Neisseria gonorrhoeae DNA probe Negative [facility] Negativ e " chlamydia DNA probe Negative [facility] Negative urine culture No growth [facility] " hepatitis B surface antigen Negative [facility] Negative " Rh antibody Negative [facility] Negative " HIV-CMIA (Chemiluminescent Microparticle Immuno Assay) Non Reactive [facility] Non Reactive " rapid plasma reagin antibody, serum Non Reactive [facility] Non Reactive " Rh antigen Positive [facility] " ABO blood group A [facility] " immature granulocytes, percentage of total cells, bloo d 1 % [facility] Not Estab. " basophil count, absolute 0.0 x10E3/uL [facility] 0.0-0.2 " Eosinophil Absolute Count 0.1 X10E3/UL [facility] 0.0-0.4 " monocyte count, blood, automated 1.4 X10E3/UL [facility] 0.1 -0.9 High " lymphocyte count, blood, automated 1.0 X10E3/UL [facility] 0 .7-3.1 " Absolute Neutrophils 8.7 X10E3/UL [facility] 1.4-7.0 High " basophils as percent of blood leukocytes 0 % [facility] Not Estab. " eosinophils as percent of blood leukocytes 1 % [facility] Not Estab. " monocytes as percent of blood leukocytes 13 % [facility] Not Estab. " lymphocytes as percent of blood leukocytes 9 % [facility] Not Estab. " neutrophils as percent of blood leukocytes 76 % [facility] Not Estab. " platelet count 210 X10E3/UL [facility] 150-379 " red blood cell distribution width 14.4 % [facility] 12.3- 15.4 " mean corpuscular hemoglobin concentration, RBC 33.8 G/DL [facility] 31.5-35.7 " mean corpuscular hemoglobin, RBC 30.8 pg [facility] 26.6-3 3.0 " mean corpuscular volume, RBC 91 fL [facility] 79-97 " hematocrit, blood 37.3 % [facility] 34.0-46.6 " hemoglobin, blood 12.6 g/dL [facility] 11.1-15.9 " erythrocyte (RBC) count 4.09 X10E6/UL [facility] 3.77-5.28 " leukocyte count, blood 11.4 X10E3/UL [facility] 3.4-10.8 Hi gh " dimeric inhibition A, multiples of median 1.13 (?) [facility] " unconjugated estriol 1.34 NG/ML [facility] " human chorionic gonadotropin, total, serum, mult iples of median 0.60 (?) [facility] " human chorionic gonadotropin, total, serum 62237 m[iU]/mL Li [facility] " alpha-1 fetoprotein, maternal ,serum, multiples of med krissy 1.31 (?) [facility] " alpha feto-protein, maternal QUAD screen 40.9 [facility] " alpha-fetoprotein interpretation of results *Screen Negative * [facility] beta HCG, urine, semiquantitative positive Anai Ng " nitrite, urine, semiquantitative Neg Anai Ng " ketones, urine, by test strip Neg Anai Ng " protein, urine, semiquantitative (dipstick) Neg Anai Ng " Herpes Simplex Virus Genital no Anai Ng HISTORY OF IMMUNIZATIONS Date Vaccine Dose Lot Number Status adacel im [id number] sanofi pasteur 0.5 mL [id number] completed HISTORY OF MEDICATION USE Medication Instructions Dates Provider Comments METRONIDAZOLE 500 MG ORAL TABLET 1 tab by mouth 2 times a da y for 7 days - Jazmin Campos CITRANATAL 90 DHA 90-1 & 300 MG ORAL 1 tab By Mouth qd - aJzmin Campos SOCIAL HISTORY Date Observation Value Provider time of call 07/06/2019 12:01 PM Yuliya kent sexual orientation heterosexual Sendy Vu ena " is there any chance that you could be ? No Sendy Harrison " passive cigarette smoke exposure No Sendy Harrison " smoking status never smoker Sendy Harrison time of call 04/08/2019 4:45 PM Ibeth Ty Have you traveled to any zika virus infected are as? No Sendy White Have you traveled to any zika virus infected are as? No Sendy White time of call 03/23/2019 10:35 AM Courtney dang Have you traveled to any zika virus infected are as? No Sendy White Have you traveled to any zika virus infected are as? No Anai Sinha Have you traveled to any zika virus infected are as? No Sendy White Have you traveled to any zika virus infected are as? No Anaira Sinha Have you traveled to any zika virus infected are as? No Anai Sinha Have you traveled to any zika virus infected are as? No Sendy White social history E&M w/fob Magaly Menendez " Have you traveled to any zika virus infected are as? No Magaly Menendez Have you traveled to any zika virus infected are as? No Anai Sinha smoking/tobacco cessation, patient education and counseling Complete Jazmin Campos " sexual orientation heterosexual Anai Ng " currently in sexual relationship with pr eviously had multiple partners at a time but currently has only one partner Anai Ng " cat exposure during no Kiah Ng " Have you traveled to any zika virus infected are as? No Anai Ng FUNCTIONAL STATUS No Information Available MENTAL STATUS Date Observation Value Provider Generalized Anxiety Disorder Questionnaire - Que stion 2 0 Sendy Harrison " Generalized Anxiety Disorder Questionnaire - Que stion 1 0 Sendy Harrison assessment of mood and affect E&M no depression [facility] " mental status examination: orientation E&M alert [facility] " assessment of judgment and insight E&M n ormal judgement and insight and intact Jazmin [place] assessment of mood and affect E&M no depression [facility] " mental status examination: recall E&M recent and remote memory intact [facility] " mental status examination: orientation E&M alert [facility] " assessment of judgment and insight E&M normal ju dgement and insight [facility] MEDICAL EQUIPMENT No Information Available FAMILY HISTORY No Information Available INSURANCE PROVIDERS No Information Available ADVANCE DIRECTIVES No Information Available TREATMENT PLAN Date Name Strep Gp B Cult + Rflx HIV 1/2 ANTIGEN/ANTIBODY, FO URTH GENERATION W/RFL HIV 1/2 ANTIGEN/ANTIBODY, FO URTH GENERATION W/RFL HIV 1/2 ANTIGEN/ANTIBODY, FO URTH GENERATION W/RFL SPOT Urine Protein: creatin e ratio LDH Uric Acid, Serum Comp. Metabolic Panel (14) CBC With Differential/Platel et Rubella Antibodies, IgG Hgb Frac. Profile (w/solubil ity/percentages) [facility] Only Drug Profile, Urine (7 Drugs ) + Alcohol Cystic Fibrosis Profile 1 hour GLUCOSE POST GLUCOSE DOSE Vaginitis/Vaginosis, DNA Pro be (Affirm) ([facility]) AFP Quad Screen Pap IG, rfx HPV ASCU (21-29) Urine Culture, Routine RPR, Rfx Qn RPR/Confirm TP HIV 1/2 ANTIGEN/ANTIBODY, FO URTH GENERATION W/RFL HBsAg Screen Gc/Ct/Trich Chlamydia/GC Amplification ( Cervical) CBC With Differential/Platel et ANTIBODY SCREEN, RBC W/REFL ID, TITER AND AG ABO Grouping and Rho(D) Typi ng Est Patient Exp Problem - 99 213 Insertion, non-biodegradable drug delivery implant (Nexplanon) Etonogestrel (contraceptive) implant system, including implant and supplies Est Patient Exp Problem - 99 213 Urinalysis - - In House Est Patient Exp Problem - 99 213 Est Patient Exp Problem - 99 213 Est Patient Exp Problem - 99 213 Est Patient Exp Problem - 99 213 Urinalysis - Dip only - In H ouse Est Patient Exp Problem - 99 213 Est Patient Exp Problem - 99 213 Urinalysis - Dip only - In H ouse Est Patient Exp Problem - 99 213 Urinalysis - Dip only - In H ouse Urinalysis - Dip only - In H ouse Est Patient Exp Problem - 99 213 First Vx - Ix admin via ID I M or jet injects without counseling by physician Adacel Intramuscular Suspens ion 5-2-15.5 Vaccines Ordered - Print Con sent/Declination Forms Est Patient Exp Problem - 99 213 Vaccines Ordered - Print Con sent/Declination Forms Est Patient Exp Problem - 99 213 Urinalysis - Dip only - In H ouse Est Patient Exp Problem - 99 213 Urinalysis - Dip only - In H ouse Est Patient Exp Problem - 99 213 Urinalysis - Dip only - In H ouse Est Patient Exp Problem - 99 213 Est Patient Exp Problem - 99 213 New Patient [facility] - [id number] HISTORY OF PROCEDURES Procedure Date Procedure Name Provider Procedure Notes Status Insertion, non-biodegradable drug delive ry implant (Nexplanon) Jazmin Campos completed Etonogestrel (contraceptive) implant system, including implant and supplies Jazmin Campos completed Urinalysis - - In House Jazmin Andres completed Urinalysis - Dip only - In House Jazmin Andres completed Urinalysis - Dip only - In House Jazmin Andres completed Urinalysis - Dip only - In House Jazmin Andres completed Urinalysis - Dip only - In House Jazmin Andres completed First Vx - Ix admin via ID I M or jet injects without counseling by physician Jazmin Andres completed Adacel Intramuscular Suspension 5-2-15.5 [place] Jaylyn elsa completed Vaccines Ordered - Print Consent/Declination Forms Roberto [place] completed Vaccines Ordered - Print Consent/Declination Forms Roberto th Andres completed Urinalysis - Dip only - In House Jazmin Andres completed Urinalysis - Dip only - In House Jazmin Andres completed Urinalysis - Dip only - In House Hudson [place] completed GOALS No Information Available HEALTH CONCERNS No Information Available
--- OUTSIDE RECORDS SUMMARY | 2020-02-11 08:04 | XMS REPORT ---
Author Author Admin, Blaise Espinoza Organization Unknown Address Unknown Phone Unavailable PROBLEMS Condition Status Date Provider Notes Contraceptive method surveillance active Jazmin W hittier Contraceptive management active Jazmin Andres examination, normal active Jazmin Whit tier BMI 30 - 30.9, adult active Jazmin Andres 29 Weeks Gestation of completed - 05/24/09 Jazmin Andres 29 Weeks Gestation of completed - 05/23/16 Jazmin [place] 29 Weeks Gestation of completed - 05/23/09 Jazmin Andres 28 Weeks Gestation of completed - 05/23/14 Jazmin [place] 38 weeks gestation of active Jazmin Whi ttier Encounter for supervision of other normal , second trimester active Jazmin Andres 25 weeks gestation of active Jazmin Whi ttier Supervision of normal first , third trimester active Jazmin Andres Gestation period greater than or equal to 37 weeks active Jazmin [place] Supervision, other normal active Jazmin Andres 36 weeks gestation of active Jazmin Whi ttier BMI 34 - 34.9, adult active Jazmin [place] 33 weeks gestation of active Jazmin Whi ttier Supervision of other normal active Roberto Andres 32 Weeks Gestation of completed - 05/21/18 Jazmin [place] 31 Weeks Gestation of completed - 05/21/13 Jazmin Andres Supervision of normal first , third trimester active Jazmin [place] Headache active Jazmin Andres BMI 32 - 32.9, adult active Jazmin Andres BMI 33 - 33.9, adult active Jazmin Sal[place] 29 weeks gestation of completed - 201 05/23/07 Jazmin Salinas 25 weeks gestation of active Jazmin Whi ttier Obesity (BMI = 30-39.9) active Jazmin Salinas 21 weeks gestation of active Jazmin Whi ttier Supervision of other normal , second trimester active [facility] Rodrigueztier [facility] - Jazmin Fitzgerald er Pelvic pain, acute completed - Jazmin Severino ier [facility] weeks [facility] Supervision, normal first active Jazmin Campos ENCOUNTERS Date Type Provider Location Encounter Diagn osis - Ambulatory [facility]ulatory Encounter Jazmin Rand [facility] Contraceptive method surveil vadim - Ambulatory Encounter LCC Triage Nu rse Desktop Sendy Gomez [facility] Contact [facility] UNK - Ambulatory Encounter Meche Luna [facility] UNK - Ambulatory Encounter Meche Luong [facility] UNK - Ambulatory Encounter [facility]min [facility]pos [facility] - Ambulatory Encounter Jazmin Rodrigueztier [facility] UNK - Ambulatory En[facility] - Ambulatory Encounter Jazmin Harrison [facility] Contraceptive management - Ambulatory Encounter Jazmin Campos Anai Ng [facility] Pelvic pain, acuteVaginal di schargeBMI 30 - 30.9, adultPostpartum examination, normal - Ambulatory Encounter Jazmin Silva ith [place] [facility] 29 Weeks Gestation of - Ambulatory Encounter Jazmin Campos [facility] UNK - Ambulatory Encounter Jazmin Campos [facility] UNK - Ambulatory Encounter Jazmin Sivla ith Andres [facility] 29 Weeks Gestation of [id number] Weeks Gestation of - Ambulatory Encounter Jazmin Silva ith [place] [facility] 29 weeks gestation of [id number] Weeks Gestation of [id number] Weeks Gestation of - Ambulatory Encounter Courtneyslime Lee [facility] UNK - Ambulatory Encounter [facility] - Ambulatory Encounter [facility] - Ambulatory Encounter Jazmin Silva ith Andres [facility] UNK - Ambulatory Encounter Jazmin Campos Sendy White [facility] 38 weeks gestation of pregna ncy - Ambulatory Encounter Jazmin Silva ith [place] [facility] 25 weeks gestation of pregnancyEncounter for supervision of other normal , second trimester - Ambulatory Encounter Jazmin Silva ith Andres [facility] UNK - Ambulatory Encounter Jazmin Campos Sendy White [facility] Gestation period greater shaq n or equal to 37 weeksSupervision of normal first , third trimester - Ambulatory Encounter Meche Luna [facility] UNK - Ambulatory Encounter Sera Alan ogic [facility] UNK - Ambulatory Encounter Anai Sinha [facility] [place] [facility] - Ambulatory Encounter Meche Luna [facility] UNK - Ambulatory Encounter Courtney Alesha [facility] UNK - Ambulatory Encounter Jazmin Silva ith Andres [facility] UNK - Ambulatory Encounter Jazmin Silva ith [place] [facility] UNK - Ambulatory Encounter Anai Sinha [facility] [place] [facility] - Ambulatory Encounter Jazmin Campos Sendy White [facility] BMI 34 - 34.9, adult36 weeks gestation of pregnancySupervision, other normal - Ambulatory Encounter Jazmin Silva ith Andres [facility] UNK - Ambulatory Encounter Jazmin Ospina Sinha [facility] Supervision of other normal [id number] weeks gestation of - Ambulatory Encounter Jazmin Campos [employer] [facility] UNK - Ambulatory Encounter Jazmin Campos [employer] [facility] UNK - Ambulatory Encounter Jazmin Silva ith [place] [facility] UNK - Ambulatory Encounter Anai Sinha [facility] [place] [facility] UNK - Ambulatory Encounter Anai Sinha [facility] [place] [facility] UNK - Ambulatory Encounter Jazmin Campos Anai Kaba White [facility] 32 Weeks Gestation of - Ambulatory Encounter Jazmin Campos [employer] [facility] UNK - Ambulatory Encounter Jazmin Silva ith [place] [facility] UNK - Ambulatory Encounter Jazmin Silva ith [place] [facility] UNK - Ambulatory Encounter Jazmin Silva ith [place] [facility] UNK - Ambulatory Encounter Jazmin Campos Anai Kaba White [facility] BMI 32 - 32.9, adultHeadacheSupervision of normal first , third [id number] Weeks Gestation of - Ambulatory Encounter Jazmin Silva ith [place] [facility] UNK - Ambulatory Encounter Jazmin Rodriguezmonster Sinha [facility] [place] [facility] 29 weeks gestation of pregna ncyBMI 33 - 33.9, adult - Ambulatory Encounter Jazmin Rodrigueztier [facility] UNK - Ambulatory Encounter Jazmin Silva shelia [place] [facility] UNK - Ambulatory Encounter Jazmin Rodriguezmonster Kaba White [facility] Obesity (BMI = 30-39.9)25 we eks gestation of - Ambulatory Encounter Paz [facility] [place] [facility] UN[facility] - Ambulatory Encounter Betsy Murdock [facility] UNK - Ambulatory Encounter Jazmin Campos [employer] [facility] UNK - Ambulatory Encounter Jazmin Campos [employer] [facility] UNK - Ambulatory Encounter Jazmin Silva ith Andres [facility] UNK - Ambulatory Encounter Jazmin Campos Magaly Menendez Ly Desouza [facility] 21 weeks gestation of - Ambulatory Encounter Jazmin Campos Fa ith [place] [facility] UNK - Ambulatory Encounter Jazmin Campos Fa ith Andres [facility] UNK - Ambulatory Encounter Anai Sinha [facility] [place] [facility] UNK - Ambulatory Encounter Anai Sinha [facility] [place] [facility] UNK - Ambulatory Encounter Anai Sinha [facility] [place] [facility] UNK - Ambulatory Encounter Jazmin Campos Anai Sinha [facility] 17 weeks gestation of pregnancySupervision of other normal , second trimester - Ambulatory Encounter Jazmin Campos [employer] [facility] UNK - Ambulatory Encounter Jazmin Campos [employer] [facility] UNK - Ambulatory Encounter Jazmin Campos [employer] [facility] UNK - Ambulatory Encounter Magaly Menendez [facility] [place] [facility] UNK - Ambulatory Encounter Jazmin Silva ith Andres [facility] UNK - Ambulatory Encounter Jazmin Silva ith [place] [facility] UNK - Ambulatory Encounter Jazmin Silva ith [place] [facility] UNK - Ambulatory Encounter Jazmin Campos Shira Campos [facility] GROUNDMAN UNK - Ambulatory Encounter Jazmin Rodriguezmonster Ng [facility] GROUNDMAN Supervision, normal first pr [id number] weeks gestation of pregnancyPelvic pain, acuteVaginal discharge - Ambulatory Encounter Health Advoca te Student [employer] Broker José Patrick [facility] UNK VITAL SIGNS Date Observation Value Provider oxygen saturation, oximetry 98 % Emilia Rand " blood pressure, diastolic 80 mm[Hg] Real Rand " blood pressure, systolic 122 mm[Hg] Harman r Spike Rand " respiratory rate E&M 16 /min Adelia Rand " pulse rate E&M 69 /min Adelia Rodriguez o " temperature E&M 98.5 [degF] Adelia E Michael o " weight E&M 179.13 lbs. Adelia Rodriguez o " weight in kilograms E&M 81.42 kg Adelia Rand " blood pressure, site #1 right arm Adelia Rand " Blood Pressure Position 01 sitting Gladys Rand " method used to obtain blood pressure automatic Adelia Rand " temperature site oral Adelia E Christina no " height E&M 62 [in_i] Adelia E Michael o " height in centimeters E&M 157.48 cm Real Rand method used to obtain blood pressure automatic Sendy Harrison " Blood Pressure Position 01 sitting Dian ernst Harrison " blood pressure, site #1 left arm Guadalup e Harrison " blood pressure, diastolic 63 mm[Hg] Guadal upe Harrison " blood pressure, systolic 110 mm[Hg] Guadalu pe Harrison " respiratory rate E&M 18 /min Sendy V elez " pulse rate E&M 87 /min Sendy Harrison " temperature site oral Sendy Harrison " temperature E&M 96.0 [degF] Sendy Harrison " weight E&M 167 lbs. Sendy Harrison " weight in kilograms E&M 75.91 kg Dianlup spike Harrison " oxygen saturation, oximetry 100 % Guad alupe Harrison " height E&M 62 [in_i] Sendy Harrison " height in centimeters E&M 157.48 cm Simonadal upe Harrison respiratory rate E&M 14 /min Anai Jhoan s " temperature E&M 98.2 [degF] Anai Ng " oxygen saturation, oximetry 98 % Mayr a Ng " pulse rate E&M 69 /min Anai Ng " blood pressure, diastolic 77 mm[Hg] Anai Ng " blood pressure, systolic 120 mm[Hg] Anai T orres " blood pressure, cuff size Adult 29-42 cm Anai Ng " temperature site oral Anai Ng " weight E&M 165 lbs. Anai Ng " height E&M 62 [in_i] Anai Ng weight change since last visit 2.20 lbs. G uadalupe White " blood pressure, cuff size Adult 29-42 cm Guadal upe White " blood pressure, diastolic 72 mm[Hg] Guadal upe White " blood pressure, systolic 115 mm[Hg] Guadalu pe White " pulse rate E&M 72 /min Sendy White " oxygen saturation, oximetry 98 % Guad alupe White " temperature site oral Snedy White " temperature E&M 98.7 [degF] Sendy White " weight E&M 189.8 lbs. Sendy White " height E&M 62 [in_i] Sendy White blood pressure, diastolic 72 mm[Hg] Guadal upe White " blood pressure, systolic 108 mm[Hg] Guadalu pe White " pulse rate E&M 85 /min Sendy White " oxygen saturation, oximetry 97 % Guad alupe White " temperature E&M 98.8 [degF] Sendy White " weight E&M 187.6 lbs. Sendy White " blood pressure, cuff size Adult 29-42 cm Guadal upe White " temperature site oral Sendy White " height E&M 62 [in_i] Sendy White weight change since last visit 9.20 lbs. G uadalupe White " blood pressure, diastolic 79 mm[Hg] Guadal upe White " blood pressure, systolic 122 mm[Hg] Guadalu pe White " pulse rate E&M 87 /min Sendy White " oxygen saturation, oximetry 96 % Guad alupe White " temperature E&M 98.3 [degF] Sendy White " weight E&M 189.2 lbs. Sendy White " blood pressure, cuff size Adult 29-42 cm Guadal upe White " temperature site oral Sendy White " height E&M 62 [in_i] Sendy White weight change since last visit -0.40 lbs. M ayra Sinha " blood pressure, diastolic 69 mm[Hg] Anai Sinha " blood pressure, systolic 122 mm[Hg] Anai L edezma " pulse rate E&M 76 /min Anai Sinha " oxygen saturation, oximetry 97 % Mayr a Sinha " respiratory rate E&M 18 /min Anai Ledez ma " temperature E&M 98.6 [degF] Anai Sinha " weight E&M 180 lbs. Anai Sinha " blood pressure, cuff size Adult 29-42 cm Anai Sinha " temperature site oral Anai Sinha " height E&M 62 [in_i] Anai Sinha blood pressure, diastolic 70 mm[Hg] Guadal upe White " blood pressure, systolic 116 mm[Hg] Guadalu pe White " pulse rate E&M 76 /min Sendy White " oxygen saturation, oximetry 98 % Guad alupe White " temperature E&M 99.1 [degF] Sendy White " weight E&M 180.4 lbs. Sendy White " blood pressure, cuff size Adult 29-42 cm Guadal upe White " temperature site oral Sendy White " height E&M 62 [in_i] Sendy White pulse rate E&M 71 /min Anai Sinha " blood pressure, diastolic 80 mm[Hg] Anai Sinha " blood pressure, systolic 121 mm[Hg] Anai L edezma " oxygen saturation, oximetry 99 % Mayr a Sinha " temperature E&M 97.2 [degF] Anai Sinha " weight E&M 179 lbs. Anai Mcelroyma " blood pressure, cuff size Adult 29-42 cm Anai Branhamezma " temperature site oral Anai Sinha " height E&M 62 [in_i] Anaira BranhamSinha weight change since last visit 9.80 lbs. M ayra Mcelroyma " blood pressure, diastolic 74 mm[Hg] Anai Sinha " blood pressure, systolic 122 mm[Hg] Anai L edezma " pulse rate E&M 80 /min Anai Branhamezma " oxygen saturation, oximetry 97 % Aliciar a Sinha " respiratory rate E&M 16 /min Anai Yonasez ma " temperature E&M 97.8 [degF] Anai Sinha " weight E&M 181 lbs. Anai Sinha " blood pressure, cuff size Adult 29-42 cm Anai Sinha " temperature site oral Anai Sinha " height E&M 62 [in_i] Anai Branhamezma weight change since last visit 7.60 lbs. G uadalupe White " blood pressure, cuff size Adult 29-42 cm Guadal upe White " blood pressure, diastolic 74 mm[Hg] Guadal upe White " blood pressure, systolic 110 mm[Hg] Guadalu pe White " pulse rate E&M 98 /min Sendy White " oxygen saturation, oximetry 98 % Guad alupe White " temperature site oral Sendy White " temperature E&M 98.8 [degF] Sendy White " weight E&M 171.2 lbs. Sendy White " height E&M 62 [in_i] Sendy White weight change since last visit 8.60 lbs. L ydia Menendez " blood pressure, diastolic 75 mm[Hg] Magaly Menendez " blood pressure, systolic 120 mm[Hg] Magaly T revino " oxygen saturation, oximetry 98 % Lydi a Menendez " respiratory rate E&M 20 /min Magaly Trevi no " weight E&M 163.6 lbs. Magalykeya Cantrello " pulse rate E&M 94 /min Magaly Menendez " temperature E&M 98.1 [degF] Magaly Menendez " temperature site oral Magaly Cantrello " blood pressure, cuff size Adult 29-42 cm Magaly Menendez " height E&M 62 [in_i] Magaly Menendez weight change since last visit 1 lbs. M ayra Sinha " blood pressure, cuff size Adult 29-42 cm Anai Sinha " blood pressure, diastolic 76 mm[Hg] Anai Sinha " blood pressure, systolic 116 mm[Hg] Anai L edezma " pulse rate E&M 72 /min Anai Sinha " oxygen saturation, oximetry 98 % Mayr a Sinha " respiratory rate E&M 16 /min Anai Ledez ma " temperature site oral Anai Sinha " temperature E&M 98.1 [degF] Anai Sinha " height E&M 62 [in_i] Anai Sinha " weight E&M 155 lbs. Anai Sinha weight E&M 154 LBS [employer] temperature site oral Anai Ng " blood pressure, cuff size Adult 29-42 cm Anai Ng " temperature E&M 98.4 [degF] Anai Ng " oxygen saturation, oximetry 97 % Mayr a Ng " pulse rate E&M 87 /min Anai Ng " blood pressure, diastolic 81 mm[Hg] Anai Ng " blood pressure, systolic 122 mm[Hg] Anai T orres " weight E&M 154 lbs. Anai Ng Allergies No Known Allergy Information REASON FOR [...] Cutoff =300 " cocaine, urine Negative [employer] Qxorzw=532 " cannabinoid screen, urine Negative [employer] Cutoff=50 " benzodiazepine screen, urine Negative [employer] Vygtug=523 " barbiturates screen, urine Negative [employer] Mvlbzf=692 " amphetamine screen, urine Negative [employer] [id number] nitrite, urine, semiquantitative Neg Sendy White " ketones, urine, by test strip Neg Sendy White " protein, urine, semiquantitative (dipstick) Neg Simonadaolu barclaye White test, type home Magaly Menendez " [...] [employer] " human chorionic gonadotropin, total, serum 40094 m[iU]/mL Li [employer] " alpha-1 fetoprotein, maternal [...] Vaccine Dose Lot Number Status adacel im [id number] sanofi pasteur 0.5 mL [id number] completed HISTORY OF MEDICATION USE Medication Instructions Dates Provider Comments SPRINTEC 28 0.25-35 MG-MCG ORAL TABLET Take 1 Tablet By Mout h Each Day Jazmin Campos METRONIDAZOLE 500 MG ORAL TABLET 1 tab by mouth 2 times a da y for 7 days - Jazmin Campos CITRANATAL 90 DHA 90-1 & 300 MG ORAL 1 tab By Mouth qd 1 - Jazmin Campos SOCIAL HISTORY Date Observation Value Provider social history E&M w/david lomas " social history reviewed E&M reviewed today Emilia Rand " sexual orientation heterosexual Adelia lomas " is there any chance that you could be ? No Adelia Rand " passive cigarette smoke exposure No Adelia Rand " smoking status never smoker Adelia hansen " Exercise Program Referral T Real Rand " Weight Management Counseling Provided T Adelia Rand " Nutrition intervention T Adelia Rand time of call 12/27/2019 11:45 AM Shanel Singh time of call 07/06/2019 12:01 PM Yuliya kent sexual orientation heterosexual Sendy Vu ez " is there any chance that you could be ? No Sendy Harrison " passive cigarette smoke exposure No Sendy Harrison " smoking status never smoker Sendy Harrison time of call 04/08/2019 4:45 PM Ibeth Ty Have you traveled to any zika virus infected are as? No Sendyernts Mera Have you traveled to any zika virus infected are as? No Sendyernst Mera time of call 03/23/2019 10:35 AM Courtney dang Have you traveled to any zika virus infected are as? No Sendyernst Mera Have you traveled to any zika virus infected are as? No Anai Sinha Have you traveled to any zika virus infected are as? No Sendyernst Mera Have you traveled to any zika virus infected are as? No Anaira Sinha Have you traveled to any zika virus infected are as? No Anai Sinha Have you traveled to any zika virus infected are as? No Sendy Mera social history E&M w/fob Magaly Menendez " Have you traveled to any zika virus infected are as? No Magaly Menendez Have you traveled to any zika virus infected are as? No Anai Sinha smoking/tobacco cessation, patient education and counseling Chantel Campos " sexual orientation heterosexual Anai Ng " currently in sexual relationship with pr brunoiously had multiple partners at a time but currently has only one partner Anai Hernandez " cat exposure during no Ma sushil Ng " Have you traveled to any zika virus infected are as? No Anai Ng FUNCTIONAL STATUS No Information Available MENTAL STATUS Date Observation Value Provider Generalized Anxiety Disorder Questionnaire - Que stion 2 0 Adelia Rand " Generalized Anxiety Disorder Questionnaire - Que stion 1 0 Adelia Rand Generalized Anxiety Disorder Questionnaire - Que stion 2 0 Sendy Harrison " Generalized Anxiety Disorder Questionnaire - Que stion 1 0 Sendy Harrison assessment of mood and affect E&M no depression Jazmin Andres " mental status examination: [facility] of [facility] and insight E&M n ormal judgement and insight and intact Jazmin Andres assessment of mood and affect E&M no depression Jazmin [place] " mental status examination: recall E&M recent and remote [facility] examination: [facility] assessment of judgment and insight E&M normal ju dgement and insight [facility] MEDICAL EQUIPMENT No Information Available FAMILY [...] Quad Screen Pap IG, rfx HPV ASCU (21-) Urine Culture, Routine RPR, Rfx Qn RPR/Confirm [...] Exp Problem - 99 213 New Patient [facility] [address] HISTORY OF PROCEDURES Procedure Date Procedure Name Provider Procedure Notes Status Insertion, non-biodegradable drug delive ry implant (Nexplanon) Jazmin Campos completed Etonogestrel (contraceptive) implant system, including implant and supplies Jazmin Campos completed Urinalysis - - In House Jazmin Campos completed Urinalysis - Dip only - In House Jazmin Campos completed Urinalysis - Dip only - In House Jazmin Campos completed Urinalysis - Dip only - In House Jazmin Campos completed Urinalysis - Dip only - In House Jazmin Campos completed First Vx - Ix admin via ID I M or jet injects without counseling by physician Jazmin Campos completed Adacel Intramuscular Suspension 5-2-15.5 Jazmin hunter completed Vaccines Ordered - Print Consent/Declination Forms Roberto Andres completed Vaccines Ordered - Print Consent/Declination Forms Roberto george Campos completed Urinalysis - Dip only - In House Jazmin Campos completed Urinalysis - Dip only - In House Jazmin Campos completed Urinalysis - Dip only - In House Jazmin Campos completed GOALS No Information Available HEALTH CONCERNS No Information Available
--- OUTSIDE RECORDS SUMMARY | 2020-02-11 08:04 | XMS REPORT ---
Author Author Admin, Blaise Espinoza Organization Unknown Address Unknown Phone Unavailable PROBLEMS Condition Status Date Provider Notes Contraceptive method surveillance active Jazmin W hittier Contraceptive management active Jazmin Porcupine examination, normal active Jazmin Whit tier BMI 30 - 30.9, adult active Jazmin Andres 29 Weeks Gestation of completed - 05/24/09 Jazmin Andres 29 Weeks Gestation of completed - 05/23/16 Jazmin Andres 29 Weeks Gestation of completed - 05/23/09 Jazmin Porcupine 28 Weeks Gestation of completed - 05/23/14 Jazmin Andres 38 weeks gestation of active Jazmin Whi ttier Encounter for supervision of other normal , second trimester active Jazmin Andres 25 weeks gestation of active Jazmin Whi ttier Supervision of normal first , third trimester active Jazmin Porcupine Gestation period greater than or equal to 37 weeks active Jazmin Andres Supervision, other normal active Jazmin Andres 36 weeks gestation of active Jazmin Whi ttier BMI 34 - 34.9, adult active Jazmin Andres 33 weeks gestation of active Jazmin Whi ttier Supervision of other normal active Roberto Andres 32 Weeks Gestation of completed - 05/21/18 Jazmin Porcupine 31 Weeks Gestation of completed - 05/21/13 Jazmin Andres Supervision of normal first , third trimester active Jazmin Andres Headache active Jazmin Porcupine BMI 32 - 32.9, adult active Jazmin Porcupine BMI 33 - 33.9, adult active Jazmin Andres 29 weeks gestation of completed - 201 05/23/07 Jamzin Andres 25 weeks gestation of active Jazmin Whi ttier Obesity (BMI = 30-39.9) active Jazmin Porcupine 21 weeks gestation of active Jazmin Whi ttier Supervision of other normal , second trimester active Jazmin Rodrigueztier 17 weeks gestation of active [facility] Vaginal discharge completed - Jazmin Fitzgerald er Pelvic pain, acute completed - Jazmin Severino ier 16 weeks gestation of active [facility] Supervision, normal first active Jazmin Campos ENCOUNTERS Date Type Provider Location Encounter Diagn osis - Ambulatory [facility] - Ambulatory Encounter Jazmin Rand [facility] HYDROGENATION OPERATOR Contraceptive method surveil vadim - Ambulatory Encounter LCC Triage Nu rse Desktop Sendy Gomez [facility] Contact Center UNK - Ambulatory Encounter Meche Luna [facility] HYDROGENATION OPERATOR UNK - Ambulatory Encounter Meche Luong [facility] Contact [facility] UNK - Ambulatory Encounter [facility]min Campos [facility] - Ambulatory Encounter Jazmin Rodrigueztier [facility] HYDROGENATION OPERATOR UNK - Ambulatory Encounter [facility]K - Ambulatory Encounter Jazmin Harrison [facility] HYDROGENATION OPERATOR Contraceptive management - Ambulatory Encounter Jazmin Campos Anai Ng [facility] HYDROGENATION OPERATOR Pelvic pain, acuteVaginal di schargeBMI 30 - 30.9, adultPostpartum examination, normal - Ambulatory Encounter Jazmin Silva ith Porcupine [facility] HYDROGENATION OPERATOR 29 Weeks Gestation of - Ambulatory Encounter Jazmin Campos [facility] HYDROGENATION OPERATOR UNK - Ambulatory Encounter Jazmin Campos [facility] HYDROGENATION OPERATOR UNK - Ambulatory Encounter Jazmin Silva ith [place] [facility] HYDROGENATION OPERATOR 29 Weeks Gestation of [id number] Weeks Gestation of - Ambulatory Encounter Jazmin Silva ith [place] [facility] HYDROGENATION OPERATOR 29 weeks gestation of [id number] Weeks Gestation of [id number] Weeks Gestation of - Ambulatory Encounter Courtneyslime Lee [facility] UNK - Ambulatory Encounter [facility] UNK - Ambulatory Encounter [facility] UNK - Ambulatory Encounter Jazmin Silva ith Andres [facility] HYDROGENATION OPERATOR UNK - Ambulatory Encounter Jazmin Campos Sendy White [facility] HYDROGENATION OPERATOR 38 weeks gestation of pregna ncy - Ambulatory Encounter Jazmin Silva ith [place] [facility] HYDROGENATION OPERATOR 25 weeks gestation of pregnancyEncounter for supervision of other normal , second trimester - Ambulatory Encounter Jazmin Silva ith [place] [facility] HYDROGENATION OPERATOR UNK - Ambulatory Encounter Jazmin Campos Sendy White [facility] HYDROGENATION OPERATOR Gestation period greater shaq n or equal to 37 weeksSupervision of normal first , third trimester - Ambulatory Encounter Meche Luna [facility] HYDROGENATION OPERATOR UNK - Ambulatory Encounter Sera Alan ogic [facility] HYDROGENATION OPERATOR UNK - Ambulatory Encounter Anai Sinha [facility] HYDROGENATION OPERATOR UNK - Ambulatory Encounter Meche Luna [facility] HYDROGENATION OPERATOR UNK - Ambulatory Encounter Courtney Alesha [facility] Adult Medicine UNK - Ambulatory Encounter Jazmin Silva ith Andres [facility] HYDROGENATION OPERATOR UNK - Ambulatory Encounter Jazmin Silva ith [place] [facility] HYDROGENATION OPERATOR UNK - Ambulatory Encounter Anai Sinha [facility] [place] HYDROGENATION OPERATOR UNK - Ambulatory Encounter Jazmin Campos Sendy White [facility] HYDROGENATION OPERATOR BMI 34 - 34.9, adult36 weeks gestation of pregnancySupervision, other normal - Ambulatory Encounter Jazmin Silva ith [place] [facility] HYDROGENATION OPERATOR UNK - Ambulatory Encounter Jazmin Ospina Sinha [facility] HYDROGENATION OPERATOR Supervision of other normal [id number] weeks gestation of - Ambulatory Encounter Jazmin Campos [employer] [facility] HYDROGENATION OPERATOR UNK - Ambulatory Encounter Jazmin Campos [employer] HYDROGENATION OPERATOR UNK - Ambulatory Encounter Jazmin Silva ith Andres [facility] HYDROGENATION OPERATOR UNK - Ambulatory Encounter Anai Sinha [facility] [place] HYDROGENATION OPERATOR UNK - Ambulatory Encounter Anai Sinha [facility] [place] HYDROGENATION OPERATOR UNK - Ambulatory Encounter Jazmin Campos Anai Kaba White [facility] HYDROGENATION OPERATOR 32 Weeks Gestation of - Ambulatory Encounter Jazmin Campos [employer] HYDROGENATION OPERATOR UNK - Ambulatory Encounter Jazmin Silva ith [place] [facility] HYDROGENATION OPERATOR UNK - Ambulatory Encounter Jazmin Silva ith [place] [facility] HYDROGENATION OPERATOR UNK - Ambulatory Encounter Jazmin Silva ith [place] [facility] HYDROGENATION OPERATOR UNK - Ambulatory Encounter Jazmin Campos Anai Kaba White [facility] HYDROGENATION OPERATOR BMI 32 - 32.9, adultHeadacheSupervision of normal first , third Weeks Gestation of - Ambulatory Encounter Jazmin Silva ith [place] [facility] HYDROGENATION OPERATOR UNK - Ambulatory Encounter Jazmin Rodriguezmonster Sinha [facility] HYDROGENATION OPERATOR 29 weeks gestation of pregna ncyBMI 33 - 33.9, adult - Ambulatory Encounter Jazmin Rodrigueztier [employer] [facility] HYDROGENATION OPERATOR UNK - Ambulatory Encounter Jazmin Silva shelia [place] [facility] HYDROGENATION OPERATOR UNK - Ambulatory Encounter Jazmin Rodriguezmonster Kaba White [facility] HYDROGENATION OPERATOR Obesity (BMI = 30-39.9)25 we eks gestation of - Ambulatory Encounter Paz Deo [facility] HYDROGENATION OPERATOR UNK - Ambulatory Encounter Betsy Murdock [facility] UNK - Ambulatory Encounter Jazmin Campos [employer] [facility] HYDROGENATION OPERATOR UNK - Ambulatory Encounter Jazmin Campos [employer] [facility] HYDROGENATION OPERATOR UNK - Ambulatory Encounter Jazmin Silva ith [place] [facility] HYDROGENATION OPERATOR UNK - Ambulatory Encounter Jazmin Campos Magaly Menendez Ly Desouza [facility] HYDROGENATION OPERATOR 21 weeks gestation of - Ambulatory Encounter Jazmin Campos Fa ith [place] [facility] HYDROGENATION OPERATOR UNK - Ambulatory Encounter Jazmin Campos Fa ith [place] [facility] HYDROGENATION OPERATOR UNK - Ambulatory Encounter Anai Sinha [facility] [place] HYDROGENATION OPERATOR UNK - Ambulatory Encounter Anai Sinha [facility] [place] HYDROGENATION OPERATOR UNK - Ambulatory Encounter Anai Sinha [facility] [place] HYDROGENATION OPERATOR UNK - Ambulatory Encounter Jazmin Campos Anai Sinha [facility] HYDROGENATION OPERATOR 17 weeks gestation of pregnancySupervision of other normal , second trimester - Ambulatory Encounter Jazmin Campos [employer] [facility] HYDROGENATION OPERATOR UNK - Ambulatory Encounter Jazmin Campos [employer] [facility] HYDROGENATION OPERATOR UNK - Ambulatory Encounter Jazmin Campos [employer] [facility] HYDROGENATION OPERATOR UNK - Ambulatory Encounter Magaly Menendez [facility] [place] HYDROGENATION OPERATOR UNK - Ambulatory Encounter Jazmin Silva ith Andres [facility] HYDROGENATION OPERATOR UNK - Ambulatory Encounter Jazmin Silva ith [place] [facility] HYDROGENATION OPERATOR UNK - Ambulatory Encounter Jazmin Silva ith Andres [facility] HYDROGENATION OPERATOR UNK - Ambulatory Encounter Jazmin Campos Shira Campos [facility] HYDROGENATION OPERATOR UNK - Ambulatory Encounter Jazmin Rodriguezmonster Ng [facility] HYDROGENATION OPERATOR Supervision, normal first pr [id number] weeks gestation of pregnancyPelvic pain, acuteVaginal discharge - Ambulatory Encounter Health Advoca te Student Cleaning Specialist José Patrick [facility] UNK VITAL SIGNS Date Observation [...] site oral Sendy White " temperature E&M 98.7 [degF] Sendy [...] " ketones, urine, by test strip Neg Aani Sinha " protein, urine, semiquantitative (dipstick) Neg [...] Cutoff =300 " cocaine, urine Negative [employer] Bvdelq=647 " cannabinoid screen, urine Negative [employer] Cutoff=50 " benzodiazepine screen, urine Negative [employer] Cvwdha=079 " barbiturates screen, urine Negative [employer] Qiciyn=873 " amphetamine screen, urine Negative [employer] Hqsdit=5186 nitrite, urine, semiquantitative Neg Sendy White " [...] [employer] " human chorionic gonadotropin, total, serum 32212 m[iU]/mL Li nkLogic " alpha-1 fetoprotein, maternal ,serum, multiples of med krissy 1.31 (?) [employer] " alpha feto-protein, maternal QUAD screen 40.9 [employer] " alpha-fetoprotein interpretation of results *Screen Negative * [employer] beta HCG, urine, semiquantitative positive Anai Ng " nitrite, urine, semiquantitative Neg Aani Ng " ketones, urine, by test strip Neg Anai Ng " protein, urine, semiquantitative (dipstick) Neg Anai Ng " Herpes Simplex Virus Genital no Anai Ng HISTORY OF IMMUNIZATIONS Date Vaccine Dose Lot Number Status adacel im [id number] sanofi pasteur 0.5 mL [id number] completed HISTORY OF MEDICATION USE Medication Instructions [...] " [facility]: [facility] of [facility] and insight E&M n ormal judgement and insight and intact Jazmin Porcupine assessment of mood and affect E&M no depression Jazmin Porcupine " mental status examination: recall E[facility]M recent and [facility] examination: [facility] assessment of judgment and insight E&M normal ju dgement and insight [facility] MEDICAL EQUIPMENT No Information Available FAMILY HISTORY [...] Exp Problem - 99 213 New Patient [facility] [id number] HISTORY OF PROCEDURES Procedure Date Procedure Name [...]
--- OUTSIDE RECORDS SUMMARY | 2020-02-11 08:04 | XMS REPORT ---
[...] Weeks Gestation of completed - 05/23/16 Jazmin [place] 29 Weeks Gestation of completed - 05/23/09 Jazmin Andres 28 Weeks Gestation of completed - 05/23/14 Jazmin [place] 38 weeks gestation of active Jazmin Whi [facility] Encounter for supervision of other normal , second trimester active Jazmin Andres 25 weeks gestation of active Jazmin Wh[facility] Supervision of normal first , third trimester active Jazmin Andres Gestation period greater than or equal to 37 weeks active Jazmin [place] Supervision, other normal active Jazmin Andres 36 weeks gestation of active Jazmin Whi ttier BMI 34 - 34.9, adult active Jazmin [place] 33 weeks gestation of active Jazmin Wh[facility] Supervision of other normal active Roberto Andres 32 Weeks Gestation of completed - 05/21/18 Jazmin [place] 31 Weeks Gestation of completed - 05/21/13 Jazmin Andres Supervision of normal first , third trimester active Jazmin [place] Headache active Jazmin Andres BMI 32 - 32.9, adult active Jazmin Andres BMI 33 - 33.9, adult active Jazmin [place] 29 weeks gestation of completed - 201 05/23/07 Jazmin [place] 25 weeks gestation of active Jazmin Whi tt[facility] Obesity (BMI = 30-39.9) active Jazmin [place] 21 weeks gestation of active Jazmin Whi [facility] Supervision of other normal , second trimester active Jazmin Rodrigueztier 17 weeks [facility] completed - Jazmin Fitzgerald er Pelvic pain, acute completed - Jazmin Severino ier 16 weeks gestation of active [facility] Supervision, normal first active Jazmin Campos ENCOUNTERS Date Type Provider Location Encounter Diagn osis - Ambulatory Encounter Jazmin Silva ith [place] [facility] [employer] UNK - Ambulatory Encounter Jazmin Rand [facility] [employer] Contraceptive method surveil vadim - Ambulatory Encounter Malgorzata Rodrigueztier Sendy Gomez [facility] Contact Center UNK - Ambulatory Encounter Meche Luna [facility] [employer] UNK - Ambulatory Encounter Meche Luong [facility] Contact Center UNK - Ambulatory Encounter Jazmin Campos [facility] [employer] UNK - Ambulatory Encounter Jazmin Silva ith [place] [facility] [employer] UNK - Ambulatory Encounter Jazmin Silva ith [place] [facility] [employer] UNK - Ambulatory Encounter Jazmin Harrison [facility] [employer] Contraceptive management - Ambulatory Encounter Jazmin Campos Anai Ng [facility] [employer] Pelvic pain, acuteVaginal di schargeBMI 30 - 30.9, adultPostpartum examination, normal - Ambulatory Encounter Jazmin Silva ith [facility] [employer] 29 Weeks Gestation of - Ambulatory Encounter Jazmin Campos [facility] [employer] UNK - Ambulatory Encounter Jazmin Campos [facility] [employer] UNK - Ambulatory Encounter Jazmin Silva ith [facility] [employer] 29 Weeks Gestation of [id number] Weeks Gestation of - Ambulatory Encounter Jazmin Silva ith [place] [facility] [employer] 29 weeks gestation of [id number] Weeks Gestation of [id number] Weeks Gestation of - Ambulatory Encounter Courtneyslime Nietoiz [facility] UNK - Ambulatory Encounter [facility] - Ambulatory Encounter [facility] - Ambulatory Encounter Jazmin Silva ith [facility] [employer] UNK - Ambulatory Encounter Jazmin Campos Sendy White [facility] [employer] 38 weeks gestation of pregna ncy - Ambulatory Encounter Jazmin Silva ith [facility] [employer] 25 weeks gestation of pregnancyEncounter for supervision of other normal , second trimester - Ambulatory Encounter Jazmin Silva ith [place] [facility] [employer] UNK - Ambulatory Encounter Jazmin Campos Sendy White [facility] [employer] Gestation period greater shaq n or equal to 37 weeksSupervision of normal first , third trimester - Ambulatory Encounter Meche Luna [facility] [employer] UNK - Ambulatory Encounter Sera Alan ogic [facility] [employer] UNK - Ambulatory Encounter Anai Sinha [facility] [place] [employer] UNK - Ambulatory Encounter Meche Luna [facility] [employer] UNK - Ambulatory Encounter Courtney Alesha [facility] Medicine UNK - Ambulatory Encounter Jazmin Silva ith [facility] [employer] UNK - Ambulatory Encounter Jazmin Silva ith [place] [facility] [employer] UNK - Ambulatory Encounter Anai Sinha [facility] [place] [employer] UNK - Ambulatory Encounter Jazmin Campos Sendy White [facility] [employer] BMI 34 - 34.9, adult36 weeks gestation of pregnancySupervision, other normal - Ambulatory Encounter Jazmin Silva ith [place] [facility] [employer] UNK - Ambulatory Encounter Jazmin Campos Anai Sinha [facility] [employer] Supervision of other normal [id number] weeks gestation of - Ambulatory Encounter Jazmin Campos [facility] [employer] UNK - Ambulatory Encounter Jazmin Campos [facility] [facility] [employer] UNK - Ambulatory Encounter Jazmin Silva ith [place] [facility] [employer] UNK - Ambulatory Encounter Anai Sinha [facility] [place] [employer] UNK - Ambulatory Encounter Anai Sinha [facility] [place] [employer] UNK - Ambulatory Encounter Jazmin Campos Anai Kaba White [facility] [employer] 32 Weeks Gestation of - Ambulatory Encounter Jazmin Campos [employer] [facility] [employer] UNK - Ambulatory Encounter Jazmin Silva ith [facility] [employer] UNK - Ambulatory Encounter Jazmin Campos Fa ith [facility] [employer] UNK - Ambulatory Encounter Jazmin Silva ith [place] [facility] [employer] UNK - Ambulatory Encounter Jazmin Campos Anai Kaba White [facility] [employer] BMI 32 - 32.9, adultHeadacheSupervision of normal first , third [id number] Weeks Gestation of - Ambulatory Encounter Jazmin Silva ith [place] [facility] [employer] UNK - Ambulatory Encounter Jazmin Rodriguezmonster Sinha [facility] [employer] 29 weeks gestation of pregna ncyBMI 33 - 33.9, adult - Ambulatory Encounter Jazmin Rodrigueztier [facility] [facility] [employer] UNK - Ambulatory Encounter Jazmin Silva ith [facility] [employer] UNK - Ambulatory Encounter Jazmin Rodriguezmonster Kaba White [facility] [employer] Obesity (BMI = 30-39.9)25 we eks gestation of - Ambulatory Encounter Paz Deo [place] [facility] [employer] UNK - Ambulatory Encounter Betsy Murdock [facility] UNK - Ambulatory Encounter Jazmin Campos [employer] [facility] [employer] UNK - Ambulatory Encounter Jazmin Campos [employer] [facility] [employer] UNK - Ambulatory Encounter Jazmin Silva ith [facility] [facility] [employer] UNK - Ambulatory Encounter Jazmin Campos Magaly Menendez Ly Desouza [facility] [employer] 21 weeks gestation of - Ambulatory Encounter Jazmin Campos Fa ith [place] [facility] [employer] UNK - Ambulatory Encounter Jazmin Campos Fa ith [place] [facility] [employer] UNK - Ambulatory Encounter Anai Sinha [facility] [place] [employer] UNK - Ambulatory Encounter Anai Sinha [facility] [place] [employer] WORK[employer] UNK - Ambulatory Encounter Anai Sinha [facility] [place] [employer] UNK - Ambulatory Encounter Jazmin Campos Anai Sinha [facility] [employer] 17 weeks gestation of pregnancySupervision of other normal , second trimester - Ambulatory Encounter Jazmin Campos [employer] [facility] [employer] UNK - Ambulatory Encounter Jazmin Campos [employer] [facility] [employer] UNK - Ambulatory Encounter Jazmin Campos [employer] [facility] [employer] WORKER UNK - Ambulatory Encounter Magaly Menendez [facility] [place] [employer] UNK - Ambulatory Encounter Jazmin Silva ith [facility] [employer] UNK - Ambulatory Encounter Jazmin Silva ith [place] [facility] [employer] UNK - Ambulatory Encounter Jazmin Campos Fa ith [place] [facility] [employer] UNK - Ambulatory Encounter Jazmin Campos [facility] [employer] UNK - Ambulatory Encounter Jazmin Campos Anai Ng [facility] [employer] Supervision, normal first pr [id number] weeks gestation of pregnancyPelvic pain, acuteVaginal discharge - Ambulatory Encounter Health Advoca te Student Licensed Electrician José Julioskyla [facility] UNK VITAL SIGNS Date Observation Value Provider oxygen saturation, oximetry 98 % Emilia Rand " blood pressure, diastolic 80 mm[Hg] Real Rand " blood pressure, systolic 122 mm[Hg] Harman r Alpa Rand " respiratory rate E&M 16 /min Adelia Rand " pulse rate 69 /min Adelia Rodriguez o " temperature E&M 98.5 [degF] Adelia E Solan o " weight E&M 179.13 lbs. Adelia E Michael o " weight in kilograms E&M 81.42 kg Adelia Rand " blood pressure, site #1 right arm Adelia Rand " Blood Pressure Position 01 sitting Gladys Rand " method used to obtain blood pressure automatic Adelia Rand " temperature site oral Adelia E Christina no " height E&M 62 [in_i] Adelia Rodriguez o " height in centimeters E&M 157.48 [...] /min Sendy V elez " pulse rate 87 /min Sendy Harrison " temperature site oral Sendy Harrison " temperature E&M 96.0 [degF] Sendy Harrison " weight E&M 167 lbs. Sendy Harrison " weight in kilograms E&M 75.91 kg Guadalup alpa Harrison " oxygen saturation, oximetry 100 % Guad alupe Harrison " height E&M 62 [in_i] Sendy Harrison " height in centimeters E&M 157.48 cm Guadal upe Harrison respiratory rate E&M 14 /min Anai Jhoan s " temperature E&M 98.2 [degF] Anai Ng " oxygen saturation, oximetry 98 % Mayr a Ng " pulse rate 69 /min Anai Ng " blood pressure, [...] mm[Hg] Guadalu pe White " pulse rate 72 /min Sendy White " oxygen saturation, oximetry 98 % Guad alupe White " temperature site oral Sendy White " temperature E&M 98.7 [degF] Sendy White " weight E&M 189.8 lbs. Sendy White " height E&M 62 [in_i] Sendy White blood pressure, diastolic 72 mm[Hg] Guadal upe White " blood pressure, systolic 108 mm[Hg] Guadalu pe White " pulse rate 85 /min Sendy White " oxygen saturation, [...] mm[Hg] Guadalu pe White " pulse rate 87 /min Sendy White " oxygen saturation, [...] mm[Hg] Anai L edezma " pulse rate 76 /min Anai Sinha " oxygen saturation, [...] mm[Hg] Guadalu pe White " pulse rate 76 /min Sendy White " oxygen saturation, oximetry 98 % Guad alupe White " temperature E&M 99.1 [degF] Sendy White " weight E&M 180.4 lbs. Sendy White " blood pressure, cuff size Adult 29-42 cm Guadal upe White " temperature site oral Sendy White " height E&M 62 [in_i] Sendy White pulse rate 71 /min Anai Sinha " blood pressure, diastolic 80 mm[Hg] Anai Sinha " blood pressure, systolic 121 mm[Hg] Anai L edezma " oxygen saturation, oximetry 99 % Mayr a Sinha " temperature E&M 97.2 [degF] Anai Sinha " weight E&M 179 lbs. Anaira BranhamSinha " blood pressure, cuff size Adult 29-42 cm Anai Mcelroyma " temperature site oral Anaira BranhamSinha " height E&M 62 [in_i] Anai Sinha weight change since last visit 9.80 lbs. M ayra Mcelroyma " blood pressure, diastolic 74 mm[Hg] Anai Sinha " blood pressure, systolic 122 mm[Hg] Anai L edezma " pulse rate 80 /min Anai Sinha " oxygen saturation, oximetry 97 % Mayr a Sinha " respiratory rate E&M 16 /min Anai Ledez ma " temperature E&M 97.8 [degF] Anai Sinha " weight E&M 181 lbs. Anaira BranhamSinha " blood pressure, cuff size Adult 29-42 cm Anai Mcelroyma " temperature site oral Anaira BranhamSinha " height E&M 62 [in_i] Anaira BranhamSinha weight change since last visit 7.60 lbs. G uadalupe White " blood pressure, cuff size Adult 29-42 cm Guadal upe White " blood pressure, diastolic 74 mm[Hg] Guadal upe White " blood pressure, systolic 110 mm[Hg] Guadalu pe White " pulse rate 98 /min Sendy White " oxygen saturation, [...] Trevi no " weight E&M 163.6 lbs. Magaly Menendez " pulse rate 94 /min Magaly Menendez " temperature E&M 98.1 [degF] Magaly Menendez " temperature site oral Magaly Menendez " blood pressure, cuff size Adult 29-42 cm Magaly Cantrello " height E&M 62 [in_i] Magaly Cantrello weight change since last visit 1 lbs. M ayra Mcelroyma " blood pressure, cuff size Adult 29-42 cm Anai Sinha " blood pressure, diastolic 76 mm[Hg] Anai Sinha " blood pressure, systolic 116 mm[Hg] Anai L edezma " pulse rate 72 /min Anai Sinha " oxygen saturation, [...] % Mayr a Ng " pulse rate 87 /min Anai Ng " blood pressure, [...] Cutoff =300 " cocaine, urine Negative [employer] Mtrzsk=297 " cannabinoid screen, urine Negative [employer] Cutoff=50 " benzodiazepine screen, urine Negative [employer] Kbdfnx=864 " barbiturates screen, urine Negative [employer] Yudrxu=609 " amphetamine screen, urine Negative [employer] Learzh=[id number] nitrite, urine, semiquantitative Neg Sendy White " ketones, urine, by test strip Neg Sendy White " protein, urine, semiquantitative (dipstick) Neg Guadal denye White test, type home Magaly Menendez " [...] [employer] " human chorionic gonadotropin, total, serum 91225 m[iU]/mL Li [employer] " alpha-1 fetoprotein, maternal [...] Vaccine Dose Lot Number Status adacel im [id number] sanofi pasteur 0.5 mL [id number] completed HISTORY OF MEDICATION USE Medication Instructions [...] Date Observation Value Provider social history E&M w/fob Adelia lomas " social history reviewed E&M reviewed today Emilia Rand " sexual orientation heterosexual Adelia lomas " is there any chance that you could be ? No Adelia Rand " passive cigarette smoke exposure No Adelia Rand " smoking status never smoker Adelia hansen " Exercise Program Referral Bernarda Rand " Weight Management Counseling Provided T Adelia Rand " Nutrition intervention Bernarda Rand time of call 12/27/2019 11:45 AM Shanel Singh time of call 07/06/2019 12:01 PM Yuliya kent sexual orientation heterosexual Sendy Elaine " is there any chance that you could be ? No Sendy Christy " passive cigarette smoke exposure No Sendy Harrison " smoking status never smoker Sendytony Harrison time of call 04/08/2019 4:45 PM [...] virus infected are as? No Anaira Sinha smoking/tobacco cessation, patient education and counseling [...] of mood and affect E&M no depression [facility] " mental status examination: orientation E&M alert [facility] " assessment of judgment and insight E&M n ormal judgement and insight and intact Jazmin [place] assessment of mood and affect [facility] " mental status examination: recall E&M recent and remote [facility] " [facility] status examination: [facility] " assessment of judgment and insight E&M normal ju dgement and insight [facility] MEDICAL EQUIPMENT No Information Available FAMILY HISTORY [...] Exp Problem - 99 213 New Patient [facility] [address] HISTORY OF PROCEDURES Procedure Date Procedure Name [...] Print Consent/Declination Forms Roberto th Andres completed Vaccines Ordered - Print Consent/Declination Forms Roberto th Andres completed Urinalysis - Dip only - In House Jazmin Campos completed Urinalysis - Dip only - In House Jazmin Campos completed Urinalysis - Dip only - In House Jazmin Campos completed GOALS No Information Available HEALTH CONCERNS No Information Available
[2020-02-11] MEDS ORDERED: ONDANSETRON HCL INJ 2MG/ML 2ML 2 MG/ML VIAL IV STA (08:15)
[2020-02-11] MEDS ORDERED: PANTOPRAZOLE 40 MG 10ML VIAL IV STA (08:15)
[2020-02-11] MEDS ORDERED: SODIUM CHLORIDE 0.9% 1000ML 1,000 ML IV STA (08:15)
[2020-02-11] MEDS ORDERED: DICYCLOMINE HCL 20 MG/2 ML VIAL IM ONE (08:15)
[2020-02-11 08:48] LABS: BASOPHILS # (AUTO) 0.1 (0.0-0.1); BASOPHILS % 0.6 % (0.0-1.0); EOSINOPHILS # (AUTO) 0.1 (0.0-0.4); HEMATOCRIT 42.2 % (34.2-44.1); LYMPHOCYTES # (AUTO) 2.2 (1.0-3.2); LYMPHOCYTES % 18.9 % (18.0-39.1); MEAN CORPUSCULAR HEMOGLOBIN 28.9 pg (28-32); MEAN CORPUSCULAR HGB CONC 33.2 g/dL (31-35); MONOCYTES # (AUTO) 0.6 (0.2-0.8); MONOCYTES % 5.3 % (4.4-11.3); NEUTROPHILS # (AUTO) 8.5 (2.1-6.9); NEUTROPHILS % 73.8 % (38.7-80.0); PLATELET COUNT 265 x10e3/uL (140-360); RED BLOOD COUNT 4.85 x10e6/uL (3.6-5.1); RED CELL DISTRIBUTION WIDTH 13.9 % (11.7-14.4)
[2020-02-11 08:52] LABS: CLARITY,URINE CLEAR (CLEAR); COLOR,URINE YELLOW (YELLOW)
[2020-02-11 08:53] LABS: BILIRUBIN,URINE NEGATIVE (NEGATIVE); KETONES,URINE NEGATIVE (NEGATIVE); LEUKOCYTE ESTERASE ,URINE NEGATIVE (NEGATIVE); NITRITE,URINE NEGATIVE (NEGATIVE); PROTEIN,URINE DIPSTICK NEGATIVE (NEGATIVE); URINE UROBILINOGEN 0.2 mg/dL (0.2 - 1)
[2020-02-11 08:54] LABS: PREGNANCY TEST, URINE NEGATIVE (NEGATIVE)
[2020-02-11 09:01] LABS: INR 0.84
[2020-02-11 09:02] LABS: PARTIAL THROMBOPLASTIN TIME 27.6 seconds (23.8-35.5)
[2020-02-11 09:07] LABS: BACTERIA,URINE MODERATE /HPF; EPITHELIAL CELLS,URINE RARE /LPF; WBC,URINE (MAN) 0-5 /HPF (0-5)
[2020-02-11 09:11] LABS: ALANINE AMINOTRANSFERASE 17 IU/L (0-55); ALBUMIN 4.1 g/dL (3.5-5.0); ALBUMIN/GLOBULIN RATIO 1.1 (0.8-2.0); ALKALINE PHOSPHATASE 56 IU/L (40-150); ANION GAP 13.9 mmol/L (8-16); BLOOD UREA NITROGEN 8 mg/dL (7-26); BUN/CREATININE RATIO 11 (6-25); CALCIUM 9.4 mg/dL (8.4-10.2); CARBON DIOXIDE 22 mmol/L (22-29); CHLORIDE 106 mmol/L (98-107); CREATINE KINASE 100 IU/L (29-168); CREATININE, SERUM 0.75 mg/dL (0.57-1.11); EST GLOMERULAR FILTRATION RATE > 60 ML/MIN (60-); GLUCOSE 130 mg/dL (74-118); POTASSIUM 3.9 mmol/L (3.5-5.1); SODIUM 138 mmol/L (136-145)
--- NOTE | 2020-02-11 09:28 | Diagnostic Imaging Report ---
EXAMINATION: CHEST SINGLE (PORTABLE) INDICATION: Abdominal pain COMPARISON: None FINDINGS: LINES/TUBES:None LUNGS:The lungs are well-inflated. No focal consolidation or pulmonary edema. PLEURA:No pleural effusion or pneumothorax. MEDIASTINUM:The cardiomediastinal silhouette appears normal in size and shape. BONES/SOFT TISSUES:No acute osseous injury. ABDOMEN:No free air under the diaphragm. IMPRESSION: No focal pneumonia or pulmonary edema. Signed by: Adonis Lamb MD on 02/11/2020 9:24 AM
--- NOTE | 2020-02-11 09:57 | Diagnostic Imaging Report ---
EXAM: Right upper quadrant abdominal ultrasound INDICATION: Right upper quadrant pain COMPARISON: None. TECHNIQUE: Transverse and longitudinal images of the right upper quadrant abdomen were obtained FINDINGS: Liver: Size: 17.2 cm in the right midclavicular line, normal Appearance: Normal echogenicity, smooth contour Mass: No focal masses Gallbladder: 1.1cm stone at the gallbladder neck. Sludge within the gallbladder. No gallbladder wall thickening, gallbladder distention, or pericholecystic fluid. Negative sonographic Arevalo's sign. Bile Ducts: Intrahepatic Ducts: No dilatation Extrahepatic Ducts: Common bile duct measures 2 mm Pancreas: Visualized portions of the pancreatic head, neck and proximal body are normal. Kidney: The right kidney measures 10.9 cm without evidence of hydronephrosis or stone. Vessels: Aorta: Visualized portions are normal Inferior Vena Cava: Visualized portions are normal Main Portal Vein: 1.2 cm, normal size with hepatopetal flow. Free Fluid: No ascites or pleural effusion IMPRESSION: Cholelithiasis and sludge in the gallbladder. No sonographic evidence of cholecystitis. Signed by: Adonis Lamb MD on 02/11/2020 9:53 AM
[2020-02-11 10:23] LABS: LIPASE 34 U/L (8-78)
--- NOTE | 2020-02-11 10:35 | Emergency Department Note ---
History of Present Illnes History of Present Illness Chief Complaint: General Medicine Complaints History of Present Illness This is a 24 year old female HERE FOR PAIN THAT STARTS IN EPIGASTRIC AREA AND SHOOTS TO BACK, STATES IT FEEL LIKE PRESSURE. ALSO REPORTS NAUSEA OFF AND ON, DENIES VOMITING, FEVER. STATES PAIN HAS BEEN PRESENT OFF AND ON FOR THE LAST 3 WEEKS. HAS ATTEMPTED OTC HEART BURN RELIEF BUT IT DIDN'T HELP. 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 Any updates have been documented here. Past Medical History Recent Fever: No Clinical Suspicion of Infectio: No New/Unexplained Change in Ment: No Past Medical History: None Other Medical History: septic arthritis in her r knee 12 years ago Past Surgical History: , Knee Replacement Other Surgery: Knee surgery at 6 years old Social History Smoking Cessation: Never Smoker Counseling Performed: No Alcohol Use: Occasional Any Illegal Drug Use: No TB Exposure/Symptoms: No Physically hurt or threatened: No Family History Family history of heart diseas: No Other Last Tetanus: utd Any Pre-Existing Lines (PICC,: No Is patient up to date on immun: Yes Last Flu: utd Last Pneumovax: utd Review of Systems Review of Systems Constitutional: no symptoms EENTM: no symptoms Cardiovascular: no symptoms Respiratory: no symptoms Gastrointestinal: abdominal pain, nausea Genitourinary: no symptoms Musculoskeletal: no symptoms Neurological: no symptoms Psychological: no symptoms Endocrine: no symptoms Hematological/Lymphatic: no symptoms Review of other systems All other systems reviewed and negative. Physical Exam Related Data Allergies: Coded Allergies: No Known Allergies (Unverified , 01/17/14) Triage Vital Signs Vital Signs Date Time Temp Pulse Resp B/P (MAP) Pulse Ox O2 Delivery O2 Flow Rate FiO2 02/11/20 08:07 97.6 75 16 129/80 99 Vital signs reviewed: Yes Physical Exam CONSTITUTIONAL Constitutional: well-developed, well-nourished HENT HENT: normocephalic, atraumatic, oropharynx clear/moist, nose normal HENT L/R: left ext ear normal, right ext ear normal EYES Eyes: PERRL, conjunctivae normal NECK Neck: ROM normal PULMONARY Pulmonary: effort normal, breath sounds normal CARDIOVASCULAR Cardiovascular: regular rhythm, heart sounds normal, capillary refill normal, normal rate GASTROINTESTINAL Abdominal: tender (MODERATE IN [facility], NO R/G, NEG AREVALO'S); guarding, mass, rebound GENITOURINARY Genitourinary: exam deferred SKIN Skin: warm, dry MUSCULOSKELETAL Musculoskeletal: ROM normal NEUROLOGICAL Neurological: alert, oriented x 3, no gross motor or sensory deficits PSYCHOLOGICAL Psychological: mood/affect normal, judgement normal Results Laboratory Result Diagram: 02/11/20 0815 02/11/20 0815 Laboratory Laboratory Tests Test 02/11/20 08:15 White Blood Count 11.46 x10e3/uL (4.8-10.8) Red Blood Count 4.85 x10e6/uL (3.6-5.1) Hemoglobin 14.0 g/dL (12.0-16.0) Hematocrit 42.2 % (34.2-44.1) Mean Corpuscular Volume 87.0 fL (81-99) Mean Corpuscular Hemoglobin 28.9 pg (28-32) Mean Corpuscular Hemoglobin Concent 33.2 g/dL (31-35) Red Cell Distribution Width 13.9 % (11.7-14.4) Platelet Count 265 x10e3/uL (140-360) Neutrophils (%) (Auto) 73.8 % (38.7-80.0) Lymphocytes (%) (Auto) 18.9 % (18.0-39.1) Monocytes (%) (Auto) 5.3 % (4.4-11.3) Eosinophils (%) (Auto) 1.0 % (0.0-6.0) Basophils (%) (Auto) 0.6 % (0.0-1.0) Neutrophils # (Auto) 8.5 (2.1-6.9) Lymphocytes # (Auto) 2.2 (1.0-3.2) Monocytes # (Auto) 0.6 (0.2-0.8) Eosinophils # (Auto) 0.1 (0.0-0.4) Basophils # (Auto) 0.1 (0.0-0.1) Absolute Immature Granulocyte (auto 0.05 x10e3/uL (0-0.1) Prothrombin Time 12.0 seconds (11.9-14.5) Prothromb Time International Ratio 0.84 Activated Partial Thromboplast Time 27.6 seconds (23.8-35.5) Urine Color Yellow (YELLOW) Urine Clarity Clear (CLEAR) Urine pH 6 (5 - 7) Urine Specific [place] >=1.030 (1.010-1.025) Urine Protein Negative (NEGATIVE) Urine Glucose (UA) Negative (NEGATIVE) Urine Ketones Negative (NEGATIVE) Urine Blood Negative (NEGATIVE) Urine Nitrite Negative (NEGATIVE) Urine Bilirubin Negative (NEGATIVE) Urine Urobilinogen 0.2 mg/dL (0.2 - 1) Urine Leukocyte Esterase Negative (NEGATIVE) Urine RBC None /HPF (0-5) Urine WBC 0-5 /HPF (0-5) Urine Epithelial Cells Rare /LPF (NONE) Urine Bacteria Moderate /HPF (NONE) Urine Test Negative (NEGATIVE) Sodium Level 138 mmol/L (136-145) Potassium Level 3.9 mmol/L (3.5-5.1) Chloride Level 106 mmol/L (98-107) Carbon Dioxide Level 22 mmol/L (22-29) Anion Gap 13.9 mmol/L (8-16) Blood Urea Nitrogen 8 mg/dL (7-26) Creatinine 0.75 mg/dL (0.57-1.11) Estimat Glomerular Filtration Rate > 60 ML/MIN (60-) BUN/Creatinine Ratio 11 (6-25) Glucose Level 130 mg/dL (74-118) Calcium Level 9.4 mg/dL (8.4-10.2) Total Bilirubin 0.3 mg/dL (0.2-1.2) Aspartate Amino Transf (AST/SGOT) 16 IU/L (5-34) Alanine Aminotransferase (ALT/SGPT) 17 IU/L (0-55) Alkaline Phosphatase 56 IU/L (40-150) Creatine Kinase 100 IU/L (29-168) Creatine Kinase MB 1.00 ng/mL (0-5.0) Troponin I < 0.001 ng/mL (0-0.300) Total Protein 8.0 g/dL (6.5-8.1) Albumin 4.1 g/dL (3.5-5.0) Globulin 3.9 g/dL (2.3-3.5) Albumin/Globulin Ratio 1.1 (0.8-2.0) Lab results reviewed: Yes Imaging Imaging results reviewed: Yes Impressions EXAM: Right upper quadrant abdominal ultrasound INDICATION: Right upper quadrant pain COMPARISON: None. TECHNIQUE: Transverse and longitudinal images of the right upper quadrant abdomen were obtained FINDINGS: Liver: Size: 17.2 cm in the right midclavicular line, normal Appearance: Normal echogenicity, smooth contour Mass: No focal masses Gallbladder: 1.1cm stone at the gallbladder neck. Sludge within the gallbladder. No gallbladder wall thickening, gallbladder distention, or pericholecystic fluid. Negative sonographic Arevalo's sign. Bile Ducts: Intrahepatic Ducts: No dilatation Extrahepatic Ducts: Common bile duct measures 2 mm Pancreas: Visualized portions of the pancreatic head, neck and proximal body are normal. Kidney: The right kidney measures 10.9 cm without evidence of hydronephrosis or stone. Vessels: Aorta: Visualized portions are normal Inferior Vena Cava: Visualized portions are normal Main Portal Vein: 1.2 cm, normal size with hepatopetal flow. Free Fluid: No ascites or pleural effusion IMPRESSION: Cholelithiasis and sludge in the gallbladder. No sonographic evidence of cholecystitis. Signed by: Adonis Lamb MD on 02/11/2020 9:53 AM EXAMINATION: CHEST SINGLE (PORTABLE) INDICATION: Abdominal pain COMPARISON: None FINDINGS: LINES/TUBES:None LUNGS:The lungs are well-inflated. No focal consolidation or pulmonary edema. PLEURA:No pleural effusion or pneumothorax. MEDIASTINUM:The cardiomediastinal silhouette appears normal in size and shape. BONES/SOFT TISSUES:No acute osseous injury. ABDOMEN:No free air under the diaphragm. IMPRESSION: No focal pneumonia or pulmonary edema. Signed by: Adonis Lamb MD on 02/11/2020 9:24 AM Diagnostics Tests Diagnostic test(s) reviewed: Yes Critical Care Time Subsequent provider I assumed direction of critical care for this patient from another provider of my specialty. Assessment & Plan Reassessment Reassessment ABD PAIN [facility] - CHECK CBC, CHEM'S, LIPASE, UA, UR PREG - R/O CHOLELITHIASIS, CHOLEDOCHOLITHIASIS, CHOLECYSTITIS, PANCREATITIS, UTI, PREG 1020 - PT NOW PAIN-FREE AFTER BENTYL AND ZOFRAN, IVF'S Assessment & Plan Final Impression: (1) OTHER CHOLELITHIASIS WITHOUT OBSTRUCTION Assessment & Plan BENTYL UD, ZOFRAN ODT UD, LOW-FAT DIET, F/U WITH Jack Alberto Disposition: HOME, SELF-CARE Last Vital Signs Date Time Temp Pulse Resp B/P (MAP) Pulse Ox O2 Delivery O2 Flow Rate FiO2 02/11/20 08:07 97.6 75 16 129/80 99 Home Meds No Active Prescriptions or Reported Meds Medications in the ED Pantoprazole Sodium 40 mg ONCE STAT IV Last administered on 02/11/20at 09:02; Admin Dose 40 MG; Start 02/11/20 at 08:15; Stop 02/11/20 at 08:20; Status DC Ondansetron HCl 4 mg ONCE STAT IV Last administered on 02/11/20at 09:02; Admin Dose 4 MG; Start 02/11/20 at 08:15; Stop 02/11/20 at 08:20; Status DC Sodium Chloride 1,000 ml @ 0 mls/hr Q0M STAT IV Last administered on 02/11/20at 09:02; Admin Dose 999 MLS/HR; Start 02/11/20 at 08:15; Stop 02/11/20 at 08:18; Status DC Dicyclomine HCl 20 mg ONCE ONCE IM Last administered on 02/11/20at 09:02; Admin Dose 20 MG; Start 02/11/20 at 08:15; Stop 02/11/20 at 08:18; Status DC BOSTON LOPEZ MD February 11, 2020 10:35
== END 2020-02-11 10:40 | disposition home or self-care (01) ==
LOC: ER 08:00
DX: R10.13 Epigastric pain (principal); R11.0 Nausea; K80.20 Calculus of gallbladder without cholecystitis without obstruction
CPT/HCPCS: 36415; 71045; 76705; 80053; 81001; 81025; 82550; 82553; 83690; 84484; 85025; 85610; 85730; 87086; 99284; C9113; J0500; J2405; J7030

== ENCOUNTER → 2020-03-10 | Day surgery (SDC) | payer BC, OTHER ==
[2020-03-07 11:13] LABS: BASOPHILS # (AUTO) 0.1 (0.0-0.1); BASOPHILS % 0.9 % (0.0-1.0); EOSINOPHILS # (AUTO) 0.1 (0.0-0.4); EOSINOPHILS % 1.5 % (0.0-6.0); HEMATOCRIT 42.7 % (34.2-44.1); HEMOGLOBIN 14.2 g/dL (12.0-16.0); LYMPHOCYTES # (AUTO) 3.5 (1.0-3.2); LYMPHOCYTES % 38.7 % (18.0-39.1); MEAN CORPUSCULAR HEMOGLOBIN 29.2 pg (28-32); MEAN CORPUSCULAR HGB CONC 33.3 g/dL (31-35); MEAN CORPUSCULAR VOLUME 87.7 fL (81-99); MONOCYTES # (AUTO) 0.7 (0.2-0.8); MONOCYTES % 7.2 % (4.4-11.3); NEUTROPHILS # (AUTO) 4.7 (2.1-6.9); NEUTROPHILS % 51.3 % (38.7-80.0); PLATELET COUNT 301 x10e3/uL (140-360); RED BLOOD COUNT 4.87 x10e6/uL (3.6-5.1); RED CELL DISTRIBUTION WIDTH 13.8 % (11.7-14.4)
[2020-03-07 11:14] LABS: BILIRUBIN,URINE NEGATIVE (NEGATIVE); CLARITY,URINE CLEAR (CLEAR); COLOR,URINE YELLOW (YELLOW); KETONES,URINE NEGATIVE (NEGATIVE); LEUKOCYTE ESTERASE ,URINE NEGATIVE (NEGATIVE); NITRITE,URINE NEGATIVE (NEGATIVE); PROTEIN,URINE DIPSTICK NEGATIVE (NEGATIVE); URINE UROBILINOGEN 0.2 mg/dL (0.2 - 1)
[2020-03-07 11:55] LABS: ALANINE AMINOTRANSFERASE 19 IU/L (0-55); ALBUMIN 4.1 g/dL (3.5-5.0); ALBUMIN/GLOBULIN RATIO 1.1 (0.8-2.0); ALKALINE PHOSPHATASE 61 IU/L (40-150); ANION GAP 14.8 mmol/L (8-16); BLOOD UREA NITROGEN 8 mg/dL (7-26); BUN/CREATININE RATIO 9 (6-25); CALCIUM 9.6 mg/dL (8.4-10.2); CARBON DIOXIDE 20 mmol/L (22-29); CHLORIDE 109 mmol/L (98-107); CREATININE, SERUM 0.87 mg/dL (0.57-1.11); EST GLOMERULAR FILTRATION RATE > 60 ML/MIN (60-); GLUCOSE 95 mg/dL (74-118); POTASSIUM 4.8 mmol/L (3.5-5.1); SODIUM 139 mmol/L (136-145)
[~2020-03-10] MED LIST: ATROPINE SULFATE 1 MG/ML VIAL ONE; DEXAMETHASONE SOD PHOS INJ 4 MG/ML VIAL ONE; FENTANYL CITRATE/PF 100MCG/2 ML INJ ONE; HYDROCODONE/APAP 7.5MG-325MG 1 EA TAB ONE; IMPLANT FOR BC; KETOROLAC TROMETHAMINE 30 MG/ML VIAL ONE; LIDOCAINE HCL 2% LOCAL INJ 5 ML SDV VIAL INJ ONE; MIDAZOLAM HCL 2 MG/2 ML VIAL ONE; MORPHINE SULFATE INJ 4 MG/ML INJ 1ML ONE; NEOSTIGMINE 1 MG/ML 10ML VIAL ONE; ONDANSETRON HCL INJ 2MG/ML 2ML 2 MG/ML VIAL ONE; PROPOFOL IV EMULSION 10 MG/ML 20 ML VIAL ONE; ROCURONIUM BROMIDE 10 MG/ML 5ML VIAL IV ONE; SEVOFLURANE INHAL SOLN 250 ML PEN BTL ONE
--- NOTE | 2020-03-10 11:13 | Operative Report ---
DATE OF PROCEDURE: 03/10/2020 SURGEON: Mario James MD PREOPERATIVE DIAGNOSES: Cholecystitis and cholelithiasis. POSTOPERATIVE DIAGNOSES: Cholecystitis and cholelithiasis. OPERATION PERFORMED: Laparoscopic cholecystectomy. ANESTHESIA: General. COMPLICATIONS: None. ESTIMATED BLOOD LOSS: Minimal. DESCRIPTION OF PROCEDURE: With the patient lying in bed in the supine position under good general endotracheal anesthesia, the abdomen was prepped with Betadine solution and draped in the usual manner. A Veress needle was introduced into the umbilicus and pneumoperitoneum was established without any difficulty. An 11 mm trocar was placed into the umbilicus and a 10 mm video laparoscope was placed into the intraabdominal cavity. Under direct vision, three 5 mm trocars were placed in the right subcostal region. Video laparoscopy at this point revealed a gallbladder that had a stone impacted at the neck. The rest of the abdominal exploration was within normal limits. The peritoneum overlying the neck of the gallbladder was then opened and the cystic duct was identified. The cystic duct was followed to its junction with the common duct. The cystic duct was then circumferentially dissected away from the common duct, doubly clipped and divided. The cystic artery was similarly doubly clipped and divided. The gallbladder was then slowly and carefully taken off the liver bed using the cautery scissors and perfect hemostasis was ascertained. The gallbladder was grasped through the umbilical port and removed without any difficulty. Video laparoscopy was then again carried out. The liver bed was found to be perfectly dry, all the excess fluid was aspirated. The pneumoperitoneum was evacuated and all the trocars were removed under direct vision. The midline fascia at the umbilicus was then closed with a [id number] of 0 Vicryl. All layers were infiltrated on the way out with solution of 0.25% Marcaine. Subcutaneous tissue was approximated with 3-0 Vicryl and the skin was closed with subcuticular 5-0 Vicryl. Benzoin, Steri-Strips, and Band-Aids were applied. The sponge, lap, and needle count was correct. The patient tolerated the procedure well and returned to the recovery room in stable condition. MD MARIELY PrattR/MODL /[id number]
[2020-03-10 12:40] VITALS: BP 112/71
== END | disposition home or self-care (01) ==
LOC: OR 06:34
PROVIDERS: ATTEND Surgery
DX: K80.10 Calculus of gallbladder with chronic cholecystitis without obstruction (principal); Z01.812 Encounter for preprocedural laboratory examination; Z11.59 Encounter for screening for other viral diseases
CPT/HCPCS: 36415; 47562; 80053; 81003; 81025; 85025; 87635; 88304; C1766; J0461; J1100; J1885; J2001; J2250; J2270; J2405; J2704; J2710; J3010

== ENCOUNTER 2022-11-18 11:17 | Emergency (ER) | payer BC, OTHER ==
[~2022-11-18] VITALS: Ht 160 cm; Wt 62.1 kg
[~2022-11-18 11:17] MED LIST changes: -ATROPINE SULFATE 1 MG/ML VIAL ONE; -DEXAMETHASONE SOD PHOS INJ 4 MG/ML VIAL ONE; -FENTANYL CITRATE/PF 100MCG/2 ML INJ ONE; -HYDROCODONE/APAP 7.5MG-325MG 1 EA TAB ONE; -KETOROLAC TROMETHAMINE 30 MG/ML VIAL ONE; -LIDOCAINE HCL 2% LOCAL INJ 5 ML SDV VIAL INJ ONE; -MIDAZOLAM HCL 2 MG/2 ML VIAL ONE; -MORPHINE SULFATE INJ 4 MG/ML INJ 1ML ONE; -NEOSTIGMINE 1 MG/ML 10ML VIAL ONE; -ONDANSETRON HCL INJ 2MG/ML 2ML 2 MG/ML VIAL ONE; -PROPOFOL IV EMULSION 10 MG/ML 20 ML VIAL ONE; -ROCURONIUM BROMIDE 10 MG/ML 5ML VIAL IV ONE; -SEVOFLURANE INHAL SOLN 250 ML PEN BTL ONE
[2022-11-18] MEDS ORDERED: LIDOCAINE 1% 10 ML MULTIDOSE VIAL IJ ONE (11:45)
[2022-11-18] MEDS ORDERED: DOXYCYCLINE HY100 MG PO (11:46)
== END 2022-11-18 12:10 | disposition home or self-care (01) ==
LOC: ER 11:22
DX: L02.412 Cutaneous abscess of left axilla (principal)
CPT/HCPCS: 99283

== ENCOUNTER 2024-01-08 16:54 | Emergency (ER) | payer SELFPAY ==
[~2024-01-08] VITALS: Ht 160 cm; Wt 89.4 kg
[~2024-01-08 16:54] MED LIST changes: +DOXYCYCLINE HY100 MG PO
[2024-01-08 17:21] LABS: BASOPHILS % 0.2 % (0.0-1.0); EOSINOPHILS % 0.1 % (0.0-6.0); HEMATOCRIT 40.6 % (34.2-44.1); HEMOGLOBIN 14.6 g/dL (12.0-16.0); LYMPHOCYTES # (AUTO) 0.9 (1.0-3.2); LYMPHOCYTES % 6.1 % (18.0-39.1); MEAN CORPUSCULAR HEMOGLOBIN 31.3 pg (28-32); MEAN CORPUSCULAR VOLUME 87.1 fL (81-99); MONOCYTES # (AUTO) 0.8 (0.2-0.8); MONOCYTES % 5.7 % (4.4-11.3); NEUTROPHILS # (AUTO) 12.9 (2.1-6.9); NEUTROPHILS % 87.6 % (38.7-80.0); PLATELET COUNT 289 x10e3/uL (140-360); RED BLOOD COUNT 4.66 x10e6/uL (3.6-5.1); RED CELL DISTRIBUTION WIDTH 12.9 % (11.7-14.4); WHITE BLOOD COUNT 14.68 x10e3/uL (4.8-10.8)
[2024-01-08 17:45] LABS: ALBUMIN 4.6 g/dL (3.5-5.0); ALBUMIN/GLOBULIN RATIO 1.2 (0.8-2.0); ANION GAP 17.5 mmol/L (8-16); BILIRUBIN,TOTAL 0.8 mg/dL (0.2-1.2); CALCIUM 9.7 mg/dL (8.4-10.2); CREATININE, SERUM 0.81 mg/dL (0.57-1.11); POTASSIUM 3.5 mmol/L (3.5-5.1); TOTAL PROTEIN 8.4 g/dL (6.5-8.1)
[2024-01-08] MEDS ORDERED: IOPAMIDOL 370 MG/ML 100 ML INFUS..BTL INJ ONE (18:06)
[2024-01-08 18:27] LABS: CREATINE KINASE 79 IU/L (29-168)
[2024-01-08 18:34] LABS: TROPONIN I < 0.001 ng/mL (0-0.300)
[2024-01-08] MEDS ORDERED: ONDANSETRON HCL INJ 2MG/ML 2ML 2 MG/ML VIAL ONE (19:01)
[2024-01-08] MEDS ORDERED: SODIUM CHLORIDE 0.9% 1000ML 2,000 ML ONE (19:02)
[2024-01-08] MEDS: SODIUM CHLORIDE 0.9% 1000ML 2,000 ML IV STA (19:04)
[2024-01-08] MEDS: ONDANSETRON HCL INJ 2MG/ML 2ML 2 MG/ML VIAL IV STA (19:04)
[2024-01-08] MEDS ORDERED: DONNATAL/LIDOCAINE/MAALOX 30 ML SUSP PO STA (19:38)
[2024-01-08] MEDS ORDERED: ONDANSETRON ODT4 MG PO (20:41)
[2024-01-08] MEDS ORDERED: PEPCID20 MG PO (20:41)
[2024-01-08 20:57] VITALS: BP 111/80; O2SAT 100
== END 2024-01-08 20:52 | disposition home or self-care (01) ==
LOC: ER 17:56
DX: R11.2 Nausea with vomiting, unspecified (principal); R10.13 Epigastric pain; R07.89 Other chest pain
CPT/HCPCS: 36415; 74177; 80053; 82550; 83690; 84484; 84702; 85025; 93005; 99284; J2405; J7030; Q9967